=== PATIENT | male | born 1960 | race African-American/Black ===

== ENCOUNTER 2023-10-27 10:30 | Inpatient (IN) ==
--- NOTE | 2023-10-27 11:50 | DR.SOBA ---
HPI Time Seen Time Seen by Provider: 10/27/23 11:50 Primary Care Physician Primary Care Physician: Alexander Complaints Chief Complaint Doctors Comments: 62-year-old male presents for evaluation. Patient started feeling ill approximate 1 week ago. He developed nausea, decreased p.o. intake. Has a cough not very productive. Has been having hiccups over the past few days. Feeling weak in general. Not moving his bowels well. No urinary issues. Having dry mouth, altered taste sensation. Denies smoking, does drink up to a 6 pk of beer/day. Chief Complaint:: Patient states that since 10/20/2023, he has been having difficulty eating and drinking. He states that he feels very weak, and has shortness of breath when he does too much physically. He states that he has had a cough, and has hickups since then as well. COVID-19 Coronavirus risk:travel/contact w/high risk person: No Has patient experienced Coronavirus symptoms: No Reviewed Nurses Notes Reviewed: Yes Source History Provided: Patient Mode of Arrival Mode of Arrival: Wheelchair Timing Onset of Chief Complaint: 10/20/23 PMH PMH Past Medical History: Yes Past Medical History: Coronary Artery Disease and Diabetes Past Surgical History: No Family History History of Family Medical Conditions: Yes Family Medical History: Diabetes Mellitus, Cancer, [place], Heart Failure and Hypertension Social History Does patient currently use any type of tobacco product: No Have you used tobacco products in the last 12 months: No Type of Tobacco Use: None Does any household member use tobacco: No Alcohol Use: None Do you use any recreational Drugs:: No Lives With: Family Lives Where: Home Travel Risk Coronavirus risk:travel/contact w/high risk person: No Has patient experienced Coronavirus symptoms: No Infectious screening In the last 2 months have you had wt loss of >10#?: NO Have you had fever, night sweats or hemotysis?: No Have you traveled outside the country in the last 6 months?: No Isolation: Standard ROS Review of Systems Constitutional: Malaise, Weakness and Fatigue Eyes: No Symptoms Reported ENTM: No Symptoms Reported Respiratoy: Moist Cough and Short of Breath Cardiovascular: No Symptoms Reported Gastrointestinal/Abdominal: Nausea Genitourinary: No Symptoms Reported Neurological: Weakness Musculoskeletal: No Symptoms Reported Integumentary: No Symptoms Reported Hematologic/Lymphatic: No Symptoms Reported All Other Systems: Reviewed and Negative PE Vital Signs Vitals: Vital Signs Temperature 98.2 F Pulse Rate 80 Pulse Rate 82 Pulse Rate 76 Pulse Rate 76 Pulse Rate 80 Pulse Rate 76 Pulse Rate 78 Pulse Rate 78 Pulse Rate 77 Pulse Rate 85 Pulse Rate 83 Pulse Rate 88 Pulse Rate 90 Pulse Rate 82 Pulse Rate 81 Pulse Rate 82 Pulse Rate 83 Pulse Rate 83 Pulse Rate 82 Pulse Rate 80 Pulse Rate 91 Respiratory Rate 36 Respiratory Rate 29 Respiratory Rate 32 Respiratory Rate 43 Respiratory Rate 48 Respiratory Rate 29 Respiratory Rate 43 Respiratory Rate 31 Respiratory Rate 34 Respiratory Rate 45 Respiratory Rate 27 Respiratory Rate 30 Respiratory Rate 38 Respiratory Rate 30 Respiratory Rate 34 Respiratory Rate 28 Respiratory Rate 33 Respiratory Rate 38 Respiratory Rate 18 Blood Pressure 141/65 Blood Pressure 138/66 Blood Pressure 135/63 Blood Pressure 179/80 Blood Pressure 153/65 Blood Pressure 143/65 Blood Pressure 138/67 Blood Pressure 123/70 Blood Pressure 124/57 Blood Pressure 127/60 O2 Sat by Pulse Oximetry 71 O2 Sat by Pulse Oximetry 82 O2 Sat by Pulse Oximetry 100 O2 Sat by Pulse Oximetry 96 General General Appearance: Alert and In No Apparent Distress Eyes Eye exam: PERRL and EOMI ENT ENT Exam: Mucous Membranes Dry Neck Neck Exam: Normal Inspection and Full ROM Respiratory Respiratory Exam: Normal Lung Sounds Bilat; negative Accessory Muscle Use or Respiratory Distress Cardiovascular Cardiovascular Exam: Regular Rate, Normal Rhythm and Normal Heart Sounds Abdominal Exam Abdominal Exam: Normal Bowel Sounds and Soft; negative Tenderness or Guarding Extremities Extremities Exam: Normal Inspection and Full ROM; negative Edema Back Back Exam: Normal Inspection Neurologic Neurological Exam: Alert, Oriented X3 and CN II-XII Intact; negative Motor Sensory Deficit Skin Skin Exam: Warm and Dry COURSE Treatment Treatment: 62-year-old male with illness for the past week. Having decreased p.o. intake, nausea, now hiccups. Has been having some cough. Having general weakness. Workup initiated. Patient given IV fluids, IV Protonix/Zofran. Labs show nml CBC, has a low sodium at 127, due to his elevated sugar at 732.. He is likely having acute kidney injury, BUN 54 with a creatinine 3.73. Patient given IV regular insulin, 12 units bolus. Continued IV fluids. Recommend admission for further IV hydration and treatment. Discussed with Dr. Vega, covering for admissions, accepts admission. ROR Labs Reviewed Laboratory Results Reviewed?: Yes 10/27/23 12:15 10/27/23 12:15 Laboratory: WBC 8.9 X10^3/uL (3.6-10.0) 10/27/23 12:15 RBC 3.38 X10^6/uL (4.7-6.0) L 10/27/23 12:15 Hgb 11.3 g/dL (13.5-18.0) L 10/27/23 12:15 Hct 35.0 % (42.0-54.0) L 10/27/23 12:15 MCV 103.6 fL (80.0-100.0) H 10/27/23 12:15 MCH 33.5 pg (27.0-34.0) 10/27/23 12:15 MCHC 32.3 g/dL (33.0-35.0) L 10/27/23 12:15 RDW 13.7 % (11.6-16.5) 10/27/23 12:15 Plt Count 154 X10^3/uL (150.0-450.0) 10/27/23 12:15 MPV 10.3 fL (7.4-11.0) 10/27/23 12:15 Neut % (Auto) 78.7 % (42.0-75.0) H 10/27/23 12:15 Lymph % (Auto) 5.1 % (21.0-51.0) L 10/27/23 12:15 [place] % (Auto) 15.6 % (0.0-13.0) H 10/27/23 12:15 Eos % (Auto) 0.1 % (0.9-2.9) L 10/27/23 12:15 Baso % (Auto) 0.5 % (0.2-1.0) 10/27/23 12:15 Neut # (Auto) 7.0 x10^3/uL (2.2-4.8) H 10/27/23 12:15 Lymph # (Auto) 0.5 X10^3/uL (1.3-2.9) L 10/27/23 12:15 [place] # (Auto) 1.4 x10^3/uL (0.3-0.8) H 10/27/23 12:15 Eos # (Auto) 0.0 x10^3/uL (0.0-0.2) 10/27/23 12:15 Baso # (Auto) 0.0 X10^3/uL (0.0-0.1) 10/27/23 12:15 Absolute Nucleated RBC 0.0 /100WBC 10/27/23 12:15 Sodium 127 mmol/L (136-145) L 10/27/23 12:15 Corrected Sodium 142 mmol/L (136-145) 10/27/23 12:15 Potassium 4.8 mmol/L (3.5-5.1) 10/27/23 12:15 Chloride 88 mmol/L (98-107) L 10/27/23 12:15 Carbon Dioxide 24.4 mmol/L (21-32) 10/27/23 12:15 BUN 54 mg/dL (7-18) H 10/27/23 12:15 Creatinine 3.73 mg/dL (0.70-1.30) H 10/27/23 12:15 Est GFR (MDRD) Af Amer 21 (>60) L 10/27/23 12:15 Est GFR (MDRD) Non-Af 18 (>60) L 10/27/23 12:15 Glucose 732 mg/dL (65-99) H* 10/27/23 12:15 Calcium 9.3 mg/dL (8.5-10.1) 10/27/23 12:15 Corrected Calcium 10.3 mg/dL (8.5-10.1) H 10/27/23 12:15 Magnesium 1.7 mg/dL (2.0-2.9) L 10/27/23 12:15 Total Bilirubin 1.70 mg/dL (0.2-1.0) H 10/27/23 12:15 AST 79 Units/L (15-37) H 10/27/23 12:15 ALT 57 Units/L (12-78) 10/27/23 12:15 Alkaline Phosphatase 81 Units/L (46-116) 10/27/23 12:15 Creatine Kinase 294 Units/L (39-308) 10/27/23 12:15 Troponin I High Sens 38.4 ng/L (4.0-60.0) 10/27/23 12:15 Total Protein 9.1 g/dL (6.4-8.2) H 10/27/23 12:15 Albumin 2.7 g/dL (3.4-5.0) L 10/27/23 12:15 Globulin 6.4 g/dL (2.5-4.5) H 10/27/23 12:15 Albumin/Globulin Ratio 0.4 Ratio (1.1-2.1) L 10/27/23 12:15 Vitamin B12 719 pg/mL (193-986) 10/27/23 12:15 Folate 7.8 ng/mL (>8.6) L 10/27/23 12:15 SARS-CoV-2 (PCR) Negative (NEGATIVE) 10/27/23 12:08 Influenza Type A (PCR) Negative (NEGATIVE) 10/27/23 12:08 Influenza Type B (PCR) Negative (NEGATIVE) 10/27/23 12:08 RSV (PCR) Negative (NEGATIVE) 10/27/23 12:08 EKG Rate: 80 [place]: Normal Rhythm: NSR ST: Normal Opioid Opioid Risk Tool Age (Erickson box if 16-45): No History of Preadolescent Sexual Abuse: No Total: 0 Total Score Risk Category: Low Risk Copyright: [place] ERIC predicting aberrant behaviors Discharge Plan Discharge Plan Patient Disposition: HOME, SELF-CARE Condition: Stable Prescriptions: No Action atorvastatin 10 mg tablet 10 mg PO QDAY meloxicam 15 mg tablet 15 mg PO QDAY tamsulosin 0.4 mg capsule 0.4 mg PO QDAY Rybelsus 7 mg Tablet 7 mg PO DAILY Orders to Discharge Patient Discharge Orders: Transfer (Routine); Ordered 10/27/23 Ordered By: Silverio Walters
[2023-10-27] MEDS ORDERED: NS 1,000 ML IV 1,000 ML IV ONE ×3 (12:00→19:11)
[2023-10-27] MEDS ORDERED: ZOFRAN INJ 4 MG VIAL IVP ONE (12:02)
[2023-10-27] MEDS ORDERED: PROTONIX INJ 40 MG VIAL IVP ONE (12:02)
[2023-10-27] MEDS ORDERED: PROTONIX INJ 40 MG VIAL ONE (12:06)
[2023-10-27] MEDS ORDERED: ZOFRAN INJ 4 MG VIAL ONE (12:07)
[2023-10-27] MEDS ORDERED: NS 1,000 ML IV 1,000 ML ONE ×2 (12:07→15:02)
--- NOTE | 2023-10-27 12:20 | EKG ---
Test Reason : dyspnea Blood Pressure : */* mmHG Vent. Rate : 80 BPM Atrial Rate : 80 BPM P-R Int : 180 ms QRS Dur : 78 ms QT Int : 360 ms P-R-T Axes : 44 20 24 degrees QTc Int : 415 ms Normal sinus rhythm with sinus arrhythmia Normal ECG No previous ECGs available Confirmed by Mal George MD ([id number]) on 10/27/2023 1:52:44 PM Referred By: Confirmed By: Mal George MD
[2023-10-27 12:32] LABS: BASOPHILS % (AUTO) 0.5 % (0.2-1.0); EOSINOPHILS % (AUTO) 0.1 % (0.9-2.9); HEMOGLOBIN 11.3 g/dL (13.5-18.0); LYMPHOCYTES # (AUTO) 0.5 X10^3/uL (1.3-2.9); LYMPHOCYTES % (AUTO) 5.1 % (21.0-51.0); MEAN CORPUSCULAR HEMOGLOBIN 33.5 pg (27.0-34.0); MEAN CORPUSCULAR HGB CONC 32.3 g/dL (33.0-35.0); MEAN CORPUSCULAR VOLUME 103.6 fL (80.0-100.0); MEAN PLATELET VOLUME 10.3 fL (7.4-11.0); MONOCYTES # (AUTO) 1.4 x10^3/uL (0.3-0.8); MONOCYTES % (AUTO) 15.6 % (0.0-13.0); NEUTROPHILS % (AUTO) 78.7 % (42.0-75.0); PLATELET COUNT 154 X10^3/uL (150.0-450.0); RED BLOOD COUNT 3.38 X10^6/uL (4.7-6.0); RED CELL DISTRIBUTION WIDTH 13.7 % (11.6-16.5); WHITE BLOOD COUNT 8.9 X10^3/uL (3.6-10.0)
[2023-10-27 12:54] LABS: ALBUMIN 2.7 g/dL (3.4-5.0); CALCIUM 9.3 mg/dL (8.5-10.1); CARBON DIOXIDE 24.4 mmol/L (21-32); COR CA(FOR HYPOALB) 10.3 mg/dL (8.5-10.1); CREATININE 3.73 mg/dL (0.70-1.30); MAGNESIUM 1.7 mg/dL (2.0-2.9); POTASSIUM 4.8 mmol/L (3.5-5.1); TOTAL PROTEIN 9.1 g/dL (6.4-8.2)
--- NOTE | 2023-10-27 13:10 | RAD ---
EXAM:CHEST, 1 VIEWHISTORY:SOB, HICCUPS;COMPARISON:No relevant prior studies were available for comparison at the time of interpretation.TECHNIQUE:CHEST, 1 VIEWFINDINGS:Chest:Lines and tubes: NoneMediastinum: Cardiac and mediastinal shadow is within normal limits for size and contour.Pulmonary vessels: No pulmonary vascular congestion.Lung burleson: No suspicious airspace opacity.Pleura: No effusion. No pneumothorax.Bones and soft tissues: No acute osseous or soft tissue abnormality.IMPRESSION:1. No acute cardiopulmonary abnormalityTHIS IS AN ELECTRONICALLY VERIFIED FINAL REPORT10/27/2023 1:07 PM - Electronically signed by Philip Betancourt MD
[2023-10-27] MEDS ORDERED: NovoLIN R (or HumuLIN R) IV ONE (14:59)
[2023-10-27] MEDS ORDERED: NovoLIN R (or HumuLIN R) ONE ×2 (15:03→15:10)
[2023-10-27] MEDS ORDERED: NS 1,000 ML IV 1,000 ML IV SCH (16:33)
[2023-10-27] MEDS: MAGNESIUM SULFATE 1 GRAM/100 mL PREMIX 1 G/100 ML BAG IV SCH ×2 (18:05→19:55)
[2023-10-27] MEDS: FOLIC ACID TAB 1 MG PO SCH (18:05)
[2023-10-27 18:57] VITALS: BMI 25.5
[2023-10-27] MEDS ORDERED: SNACK - Diabetic Appropriate PO SCH (20:00)
[2023-10-27 20:06] LABS: BILIRUBIN,URINE NEGATIVE (NEGATIVE); BLOOD/HEMOGLOBIN,URINE 4+ (NEGATIVE); GLUCOSE, URINE 4+ (NEGATIVE); KETONES,URINE 1+ (NEGATIVE); LEUKOCYTE ESTERASE ,URINE NEGATIVE (NEGATIVE); NITRITES,URINE NEGATIVE (NEGATIVE); PROTEIN,URINE 1+ (NEGATIVE); UROBILINOGEN,URINE NORMAL (NORMAL)
[2023-10-27 20:16] LABS: APPEARANCE,URINE CLEAR (CLEAR); COLOR,URINE DARK YELLOW (YELLOW)
[2023-10-27 20:17] LABS: BACTERIA,URINE 2+ /HPF (NEGATIVE); GRANULAR CASTS,URINE RARE /LPF (NEGATIVE); HYALINE CASTS, URINE RARE /LPF (NEGATIVE); SQUAMOUS EPITHELIAL CELL,UR FEW /HPF (NEGATIVE)
[2023-10-27] MEDS: SNACK - Diabetic Appropriate PO SCH (21:23)
[2023-10-27] MEDS: NovoLIN R (or HumuLIN R) SUBCUT PRN (21:52)
[2023-10-27] MEDS: LIBRIUM PO PRN (22:43)
[2023-10-28] MEDS: NS 1,000 ML IV 1,000 ML IV SCH ×3 (02:01→17:41)
[2023-10-28 05:38] LABS: BASOPHILS % (AUTO) 0.2 % (0.2-1.0); EOSINOPHILS % (AUTO) 0.5 % (0.9-2.9); HEMATOCRIT 32.9 % (42.0-54.0); LYMPHOCYTES # (AUTO) 0.6 X10^3/uL (1.3-2.9); MEAN CORPUSCULAR HEMOGLOBIN 33.5 pg (27.0-34.0); MEAN CORPUSCULAR HGB CONC 33.3 g/dL (33.0-35.0); MEAN CORPUSCULAR VOLUME 100.4 fL (80.0-100.0); MEAN PLATELET VOLUME 9.8 fL (7.4-11.0); MONOCYTES # (AUTO) 1.4 x10^3/uL (0.3-0.8); MONOCYTES % (AUTO) 15.7 % (0.0-13.0); NEUTROPHILS # (AUTO) 6.7 x10^3/uL (2.2-4.8); NEUTROPHILS % (AUTO) 76.6 % (42.0-75.0); PLATELET COUNT 162 X10^3/uL (150.0-450.0); RED BLOOD COUNT 3.28 X10^6/uL (4.7-6.0); RED CELL DISTRIBUTION WIDTH 13.6 % (11.6-16.5); WHITE BLOOD COUNT 8.7 X10^3/uL (3.6-10.0)
[2023-10-28 05:46] LABS: ALBUMIN 2.3 g/dL (3.4-5.0); CALCIUM 8.8 mg/dL (8.5-10.1); CARBON DIOXIDE 27.4 mmol/L (21-32); COR CA(FOR HYPOALB) 10.2 mg/dL (8.5-10.1); CREATININE 2.91 mg/dL (0.70-1.30); POTASSIUM 4.3 mmol/L (3.5-5.1)
[2023-10-28] MEDS: NovoLIN R (or HumuLIN R) SUBCUT PRN ×4 (05:56→21:35)
[2023-10-28] MEDS: FLOMAX PO SCH (09:12)
[2023-10-28] MEDS: LIBRIUM PO PRN ×2 (09:12→21:36)
[2023-10-28] MEDS: FOLIC ACID TAB 1 MG PO SCH (09:12)
[2023-10-28] MEDS: LOVENOX INJ 30 MG SYR SC SCH (09:13)
[2023-10-28] MEDS ORDERED: VALIUM PO ONE (09:17)
[2023-10-28] MEDS: VISTARIL PO SCH ×2 (10:48→19:02)
[2023-10-28] MEDS: NORCO 5/325 MG TAB PO PRN ×2 (12:24→21:36)
[2023-10-28] MEDS ORDERED: LIBRIUM PO PRN (17:11)
--- NOTE | 2023-10-28 18:53 | PCM.PROG ---
Progress Note Progress Note for Day of Date of Exam: 10/28/23 Subjective Subjective: PT IS 63 BM, ER ADMISSION WITH ACUTE RENAL INSUFFICIENCY AND HYPONATREMIA. PT REPORTS HX OF DIABETES AND ARTHRITIS. PT STATES HE HAS NOT TAKEN ANY MEDICATION FOR "SOMETIME NOW" PT HAS BEEN ON GENTLE IV HYDRATION SINCE ADMISSION WITH SLIGHT IMPROVEMENT IN BUN CREAT AT50/2.91 THIS AM. NA 128. PT BS ELEVATED, COVERING WITH SSI. PT REPORTS HE IS REGULAR BEER DRINKER. PT IS ON LIBRIUM AND PRN VISTARIL FOR AGITATION/WITHDRAWAL SYMPTOMS. PT CO LOWER BACK PAIN THIS AM. PT HAS MOBIC ON HOME MEDICATION LIST, WHICH HE CANNOT TAKE DUE TO RENAL IMPAIRMENT. PRN NORCO ADDED FOR PAIN CONTROL. PLAN TO REPEAT AM LABS AND CONTINUE BS AND BP MONITORING Past Medical Family Social History Allergies: Allergies No Known Allergies Allergy (Verified 11/03/22 08:13) Vital Signs and I&O's Vital Signs: Vital Signs Temperature 97.7 F Temperature 98.8 F Pulse Rate 81 Pulse Rate 82 Pulse Rate 79 Pulse Rate 82 Pulse Rate 93 Pulse Rate 85 Pulse Rate 100 Pulse Rate 93 Pulse Rate 87 Respiratory Rate 51 Respiratory Rate 34 Respiratory Rate 46 Respiratory Rate 41 Respiratory Rate 33 Respiratory Rate 40 Respiratory Rate 26 Respiratory Rate 33 Respiratory Rate 28 Respiratory Rate 25 Respiratory Rate 30 Blood Pressure 124/63 Blood Pressure 110/59 Blood Pressure 104/56 Blood Pressure 95/50 Blood Pressure 90/54 Blood Pressure 86/54 Blood Pressure 85/51 Blood Pressure 86/54 Blood Pressure 125/63 Blood Pressure 124/59 Blood Pressure 152/72 O2 Sat by Pulse Oximetry 95 O2 Sat by Pulse Oximetry 98 O2 Sat by Pulse Oximetry 100 O2 Sat by Pulse Oximetry 100 O2 Sat by Pulse Oximetry 97 O2 Sat by Pulse Oximetry 96 O2 Sat by Pulse Oximetry 99 O2 Sat by Pulse Oximetry 97 O2 Sat by Pulse Oximetry 93 Intake and Output: Intake & Output 10/26/23 10/27/23 10/28/23 10/29/23 11:59 11:59 11:59 11:59 Intake Total 2475 / 2475 1095 / 1095 Output Total 1350 / 1350 575 / 575 Balance 1125 / 1125 520 / 520 Physical Exam Oriented: Normal Eyes: Normal Ear: Normal Nose: Normal Throat: Dry Respiratory: Diminished Cardiovascular: Normal : Normal Auscultation: Bowel Sounds: Normal Palpation: Normal Tenderness: Normal Skin: Decreased [place]urgur Musculoskeletal: Back:Lumbar Affect: Anxious Speech Pattern: Clear and Appropriate Laboratory and Diagnostics 10/28/23 04:50 10/28/23 04:50 Labs: 10/27/23 19:55 Urine,Clean Catch Urine Culture - Preliminary Laboratory WBC 8.7 X10^3/uL (3.6-10.0) 10/28/23 04:50 RBC 3.28 X10^6/uL (4.7-6.0) L 10/28/23 04:50 Hgb 11.0 g/dL (13.5-18.0) L 10/28/23 04:50 Hct 32.9 % (42.0-54.0) L 10/28/23 04:50 MCV 100.4 fL (80.0-100.0) H 10/28/23 04:50 MCH 33.5 pg (27.0-34.0) 10/28/23 04:50 MCHC 33.3 g/dL (33.0-35.0) 10/28/23 04:50 RDW 13.6 % (11.6-16.5) 10/28/23 04:50 Plt Count 162 X10^3/uL (150.0-450.0) 10/28/23 04:50 MPV 9.8 fL (7.4-11.0) 10/28/23 04:50 Neut % (Auto) 76.6 % (42.0-75.0) H 10/28/23 04:50 Lymph % (Auto) 7.0 % (21.0-51.0) L 10/28/23 04:50 [place] % (Auto) 15.7 % (0.0-13.0) H 10/28/23 04:50 Eos % (Auto) 0.5 % (0.9-2.9) L 10/28/23 04:50 Baso % (Auto) 0.2 % (0.2-1.0) 10/28/23 04:50 Neut # (Auto) 6.7 x10^3/uL (2.2-4.8) H 10/28/23 04:50 Lymph # (Auto) 0.6 X10^3/uL (1.3-2.9) L 10/28/23 04:50 [place] # (Auto) 1.4 x10^3/uL (0.3-0.8) H 10/28/23 04:50 Eos # (Auto) 0.0 x10^3/uL (0.0-0.2) 10/28/23 04:50 Baso # (Auto) 0.0 X10^3/uL (0.0-0.1) 10/28/23 04:50 Absolute Nucleated RBC 0.1 /100WBC 10/28/23 04:50 Sodium 128 mmol/L (136-145) L 10/28/23 04:50 Corrected Sodium 133 mmol/L (136-145) L 10/28/23 04:50 Potassium 4.3 mmol/L (3.5-5.1) 10/28/23 04:50 Chloride 95 mmol/L (98-107) L 10/28/23 04:50 Carbon Dioxide 27.4 mmol/L (21-32) 10/28/23 04:50 BUN 50 mg/dL (7-18) H 10/28/23 04:50 Creatinine 2.91 mg/dL (0.70-1.30) H 10/28/23 04:50 Est GFR (MDRD) Af Amer 28 (>60) L 10/28/23 04:50 Est GFR (MDRD) Non-Af 23 (>60) L 10/28/23 04:50 Glucose 306 mg/dL (65-99) H 10/28/23 04:50 POC Glucose (mg/dL) 247 mg/dL (65-99) H 10/28/23 16:38 Calcium 8.8 mg/dL (8.5-10.1) 10/28/23 04:50 Corrected Calcium 10.2 mg/dL (8.5-10.1) H 10/28/23 04:50 Magnesium 1.7 mg/dL (2.0-2.9) L 10/27/23 12:15 Total Bilirubin 1.60 mg/dL (0.2-1.0) H 10/28/23 04:50 AST 142 Units/L (15-37) H 10/28/23 04:50 ALT 60 Units/L (12-78) 10/28/23 04:50 Alkaline Phosphatase 74 Units/L (46-116) 10/28/23 04:50 Creatine Kinase 294 Units/L (39-308) 10/27/23 12:15 Troponin I High Sens 38.4 ng/L (4.0-60.0) 10/27/23 12:15 Total Protein 8.0 g/dL (6.4-8.2) 10/28/23 04:50 Albumin 2.3 g/dL (3.4-5.0) L 10/28/23 04:50 Globulin 5.7 g/dL (2.5-4.5) H 10/28/23 04:50 Albumin/Globulin Ratio 0.4 Ratio (1.1-2.1) L 10/28/23 04:50 Vitamin B12 719 pg/mL (193-986) 10/27/23 12:15 Folate 7.8 ng/mL (>8.6) L 10/27/23 12:15 Specimen Type Clean catch urine 10/27/23 19:55 Urine Color Dark yellow (YELLOW) 10/27/23 19:55 Urine Appearance Clear (CLEAR) 10/27/23 19:55 Urine pH 5.0 (5.0 - 8.0) 10/27/23 19:55 Ur Specific [place] 1.015 (1.000-1.030) 10/27/23 19:55 Urine Protein 1+ (NEGATIVE) 10/27/23 19:55 Urine Glucose (UA) 4+ (NEGATIVE) 10/27/23 19:55 Urine Ketones 1+ (NEGATIVE) 10/27/23 19:55 Urine Blood 4+ (NEGATIVE) 10/27/23 19:55 Urine Nitrite Negative (NEGATIVE) 10/27/23 19:55 Urine Bilirubin Negative (NEGATIVE) 10/27/23 19:55 Urine Urobilinogen Normal (NORMAL) 10/27/23 19:55 Ur Leukocyte Esterase Negative (NEGATIVE) 10/27/23 19:55 Urine RBC 3-5 /HPF (0-3) A 10/27/23 19:55 Urine WBC None seen /HPF (0-5) 10/27/23 19:55 Ur Squamous Epith Cells Few /HPF (NEGATIVE) 10/27/23 19:55 Amorphous Sediment Trace /HPF (NEGATIVE) 10/27/23 19:55 Urine Bacteria 2+ /HPF (NEGATIVE) 10/27/23 19:55 Hyaline Casts Rare /LPF (NEGATIVE) 10/27/23 19:55 Granular Casts Rare /LPF (NEGATIVE) 10/27/23 19:55 Ur Culture Indicated? Yes/culture set up 10/27/23 19:55 SARS-CoV-2 (PCR) Negative (NEGATIVE) 10/27/23 12:08 Influenza Type A (PCR) Negative (NEGATIVE) 10/27/23 12:08 Influenza Type B (PCR) Negative (NEGATIVE) 10/27/23 12:08 RSV (PCR) Negative (NEGATIVE) 10/27/23 12:08 Plan (1) Acute kidney injury (nontraumatic): Status: Acute Narrative Support Text: GENTLE IV HYDRATION, STRICT I&OS BS CONTROL BP CONTROL REPEAT AM LABS, ENCOURAGE ORAL HYDRATION (2) Poorly controlled diabetes mellitus: Status: Acute (3) Hyponatremia: Status: Acute
[2023-10-28] MEDS: TRADJENTA PO SCH (19:05)
[2023-10-28] MEDS: SNACK - Diabetic Appropriate PO SCH (19:40)
[2023-10-29] MEDS: NS 1,000 ML IV 1,000 ML IV SCH ×4 (00:51→23:25)
[2023-10-29] MEDS: VISTARIL PO SCH ×3 (02:55→17:14)
[2023-10-29 05:42] LABS: BASOPHILS % (AUTO) 0.1 % (0.2-1.0); EOSINOPHILS % (AUTO) 0.3 % (0.9-2.9); HEMATOCRIT 30.5 % (42.0-54.0); HEMOGLOBIN 10.1 g/dL (13.5-18.0); LYMPHOCYTES # (AUTO) 0.5 X10^3/uL (1.3-2.9); LYMPHOCYTES % (AUTO) 3.8 % (21.0-51.0); MEAN CORPUSCULAR HGB CONC 33.1 g/dL (33.0-35.0); MEAN CORPUSCULAR VOLUME 99.7 fL (80.0-100.0); MONOCYTES # (AUTO) 1.7 x10^3/uL (0.3-0.8); MONOCYTES % (AUTO) 12.7 % (0.0-13.0); NEUTROPHILS # (AUTO) 10.8 x10^3/uL (2.2-4.8); NEUTROPHILS % (AUTO) 83.1 % (42.0-75.0); PLATELET COUNT 141 X10^3/uL (150.0-450.0); RED BLOOD COUNT 3.06 X10^6/uL (4.7-6.0); RED CELL DISTRIBUTION WIDTH 13.7 % (11.6-16.5)
[2023-10-29] MEDS: NovoLIN R (or HumuLIN R) SUBCUT PRN ×3 (05:46→21:01)
[2023-10-29 05:58] LABS: ALBUMIN 1.9 g/dL (3.4-5.0); CALCIUM 8.3 mg/dL (8.5-10.1); CARBON DIOXIDE 23.8 mmol/L (21-32); CREATININE 3.19 mg/dL (0.70-1.30); POTASSIUM 4.1 mmol/L (3.5-5.1); TOTAL PROTEIN 7.2 g/dL (6.4-8.2)
[2023-10-29 06:11] LABS: BAND NEUTROPHILS % 5 % (0-10); PLATELET MORPHOLOGY COMMENT NORMAL (NORMAL)
[2023-10-29] MEDS: FOLIC ACID TAB 1 MG PO SCH (09:25)
[2023-10-29] MEDS: LOVENOX INJ 30 MG SYR SC SCH (09:25)
[2023-10-29] MEDS: FLOMAX PO SCH (09:25)
[2023-10-29] MEDS: TRADJENTA PO SCH (09:26)
[2023-10-29 10:06] LABS: BILIRUBIN,URINE 1+ (NEGATIVE); BLOOD/HEMOGLOBIN,URINE 3+ (NEGATIVE); GLUCOSE, URINE 4+ (NEGATIVE); KETONES,URINE NEGATIVE (NEGATIVE); LEUKOCYTE ESTERASE ,URINE 1+ (NEGATIVE); NITRITES,URINE NEGATIVE (NEGATIVE); PROTEIN,URINE 2+ (NEGATIVE); UROBILINOGEN,URINE 2+ (NORMAL)
[2023-10-29 10:18] LABS: APPEARANCE,URINE SLIGHTLY HAZY (CLEAR); COLOR,URINE ORANGE (YELLOW)
[2023-10-29 10:19] LABS: BACTERIA,URINE 2+ /HPF (NEGATIVE); GRANULAR CASTS,URINE FEW /LPF (NEGATIVE); RBC,URINE 0-2 /HPF (0-3); SQUAMOUS EPITHELIAL CELL,UR RARE /HPF (NEGATIVE)
[2023-10-29] MEDS: ROCEPHIN VIAL 1 GRAM 1 G in NS 100 ML IV 100 ML IV SCH (12:17)
--- NOTE | 2023-10-29 12:45 | CT ---
EXAM:PELVIS W/O CONHISTORY:ENLARGED PROSTATE ; HTN, DIABETES.COMPARISON:NoneTECHNIQUE:Multip le CT axial images of the pelvis were obtained without IV contrast. Coronal and sagittal images were reconstructed. Dose reduction techniques included Automated Exposure Control (AEC) and adjustment of mA and kV.FINDINGS:[place] balloon catheter is inflated in the urinary bladder lumen. Bladder is calcified with no obvious wall thickening or edema around it.Margins of the prostate are not well seen but I believe it measures 52 x 57 x 39 mm. This yields a volume of about 60 mL. It has no abnormal density or significant calcification.The bowel is not dilated. There is no wall thickening in the bowel or edema around the bowel.Degenerative changes are present in the spine. There are also degenerative changes in the left femoral head.IMPRESSION:1. Large prostateTHIS IS AN ELECTRONICALLY VERIFIED FINAL REPORT10/29/2023 12:43 PM - Electronically signed by Renan Moreno MD
[2023-10-29] MEDS: LIBRIUM PO PRN (18:59)
--- NOTE | 2023-10-29 19:00 | EKG ---
Test Reason : Elevated HR Blood Pressure : */* mmHG Vent. Rate : 150 BPM Atrial Rate : * BPM P-R Int : * ms QRS Dur : 82 ms QT Int : 290 ms P-R-T Axes : * 21 10 degrees QTc Int : 458 ms Atrial fibrillation with rapid ventricular response Abnormal ECG When compared with ECG of 27-OCT-2023 12:17, Atrial fibrillation has replaced Sinus rhythm Vent. rate has increased BY 70 BPM Confirmed by Mal George MD ([id number]) on 11/01/2023 7:46:52 AM Referred By: Confirmed By: Mal George MD
[2023-10-29] MEDS ORDERED: MOTRIN TAB 800 MG PO PRN (19:30)
[2023-10-29] MEDS ORDERED: PHENOBARBITAL SODIUM INJ 65 MG VIAL IM PRN (19:30)
[2023-10-29] MEDS ORDERED: KAOPECTATE (NEW FORMULA) PO PRN (19:30)
[2023-10-29] MEDS ORDERED: LIBRIUM PO PRN (19:30)
[2023-10-29] MEDS ORDERED: MAALOX or MYLANTA PO PRN (19:30)
[2023-10-29] MEDS ORDERED: MILK OF MAGNESIA PO PRN (19:30)
[2023-10-29] MEDS ORDERED: CARDIZEM INJ 50 MG VIAL IVP ONE (19:34)
[2023-10-29] MEDS ORDERED: CARDIZEM INJ 125 MG VIAL 125 MG in NS 100 ML IV 100 ML IV PRN (20:11)
[2023-10-29] MEDS: AMBIEN PO SCH (20:31)
[2023-10-29] MEDS: PHENOBARBITAL TAB 30 MG (32.4MG) PO SCH (20:31)
[2023-10-29] MEDS: SNACK - Diabetic Appropriate PO SCH (20:33)
[2023-10-29] MEDS ORDERED: MAGNESIUM SULFATE 1 GRAM/100 mL PREMIX 1 G/100 ML BAG IV ONE (20:52)
[2023-10-29] MEDS: MAGNESIUM SULFATE 1 GRAM/100 mL PREMIX 1 G/100 ML BAG IV SCH (21:00)
[2023-10-29] MEDS: ELIQUIS PO SCH (23:39)
[2023-10-30] MEDS ORDERED: NS 500 ML IV 500 ML IV ONE (01:18)
[2023-10-30] MEDS: VISTARIL PO SCH ×3 (03:16→17:49)
[2023-10-30] MEDS: NS 1,000 ML IV 1,000 ML IV SCH ×4 (05:18→17:32)
[2023-10-30] MEDS: MAGNESIUM SULFATE 1 GRAM/100 mL PREMIX 1 G/100 ML BAG IV SCH ×3 (05:19→21:17)
[2023-10-30 05:28] LABS: BASOPHILS # (AUTO) 0.1 X10^3/uL (0.0-0.1); BASOPHILS % (AUTO) 0.7 % (0.2-1.0); EOSINOPHILS # (AUTO) 0.1 x10^3/uL (0.0-0.2); EOSINOPHILS % (AUTO) 0.5 % (0.9-2.9); HEMATOCRIT 30.5 % (42.0-54.0); HEMOGLOBIN 10.2 g/dL (13.5-18.0); LYMPHOCYTES # (AUTO) 0.4 X10^3/uL (1.3-2.9); LYMPHOCYTES % (AUTO) 3.8 % (21.0-51.0); MEAN CORPUSCULAR HEMOGLOBIN 33.5 pg (27.0-34.0); MEAN CORPUSCULAR HGB CONC 33.6 g/dL (33.0-35.0); MEAN CORPUSCULAR VOLUME 99.8 fL (80.0-100.0); MEAN PLATELET VOLUME 10.6 fL (7.4-11.0); MONOCYTES # (AUTO) 1.4 x10^3/uL (0.3-0.8); MONOCYTES % (AUTO) 12.3 % (0.0-13.0); NEUTROPHILS # (AUTO) 9.1 x10^3/uL (2.2-4.8); NEUTROPHILS % (AUTO) 82.7 % (42.0-75.0); PLATELET COUNT 135 X10^3/uL (150.0-450.0); RED BLOOD COUNT 3.05 X10^6/uL (4.7-6.0); RED CELL DISTRIBUTION WIDTH 13.9 % (11.6-16.5)
[2023-10-30] MEDS: NovoLIN R (or HumuLIN R) SUBCUT PRN ×4 (05:30→20:36)
[2023-10-30 05:44] LABS: ALBUMIN 1.7 g/dL (3.4-5.0); CALCIUM 8.1 mg/dL (8.5-10.1); CARBON DIOXIDE 21.1 mmol/L (21-32); COR CA(FOR HYPOALB) 9.9 mg/dL (8.5-10.1); CREATININE 3.02 mg/dL (0.70-1.30)
[2023-10-30 06:09] LABS: POTASSIUM 4.3 mmol/L (3.5-5.1)
--- NOTE | 2023-10-30 06:55 | RAD ---
EXAM: CHEST, PA/LAT ADULT HISTORY: detox protocol; COMPARISON: 10/27/2023. TECHNIQUE: 2 views of the chest FINDINGS: The cardiac and mediastinal contours are normal in size. Left base subsegmental atelectasis versus s car. Mildly elevated right hemidiaphragm. IMPRESSION: Linear left base opacities consistent with subsegmental atelectasis versus scar. THIS IS AN ELECTRONICALLY VERIFIED FINAL REPORT 10/30/2023 6:51 AM - Electronically signed by Faraz Chung MD
[2023-10-30] MEDS: ROCEPHIN VIAL 1 GRAM 1 G in NS 100 ML IV 100 ML IV SCH (10:03)
[2023-10-30] MEDS: TRADJENTA PO SCH (10:03)
[2023-10-30] MEDS: LIBRIUM PO PRN ×2 (10:04→10:06)
[2023-10-30] MEDS: FOLIC ACID TAB 1 MG PO SCH (10:04)
[2023-10-30] MEDS: PHENOBARBITAL TAB 30 MG (32.4MG) PO SCH ×5 (10:04→20:26)
[2023-10-30] MEDS: FLOMAX PO SCH (10:05)
[2023-10-30] MEDS: ELIQUIS PO SCH ×2 (10:05→20:24)
[2023-10-30] MEDS: NORCO 5/325 MG TAB PO PRN (10:05)
[2023-10-30] MEDS: THIAMINE HCL INJ IM SCH (10:06)
[2023-10-30] MEDS: CARDIZEM CD 120 MG 24-HR PO SCH ×2 (12:57→14:05)
--- NOTE | 2023-10-30 16:18 | PCM.PROG ---
Progress Note Progress Note for Day of Date of Exam: 10/30/23 Subjective Subjective: PT IS 63 BM, ER ADMISSION WITH ACUTE RENAL INSUFFICIENCY AND HYPONATREMIA. PT REPORTS HX OF DIABETES AND ARTHRITIS. PT STATES HE HAS NOT TAKEN ANY MEDICATION FOR "SOMETIME NOW" PT HAS BEEN ON GENTLE IV HYDRATION SINCE ADMISSION WITH SLIGHT IMPROVEMENT IN BUN CREAT AT50/2.91 THIS AM. NA 128. PT BS ELEVATED, COVERING WITH SSI. PT REPORTS HE IS REGULAR BEER DRINKER. PT IS ON LIBRIUM AND PRN VISTARIL FOR AGITATION/WITHDRAWAL SYMPTOMS. PT CO LOWER BACK PAIN THIS AM. PT HAS MOBIC ON HOME MEDICATION LIST, WHICH HE CANNOT TAKE DUE TO RENAL IMPAIRMENT. PRN NORCO ADDED FOR PAIN CONTROL. PLAN TO REPEAT AM LABS AND CONTINUE BS AND BP MONITORING Wednesday, 30 October 2023 The patient is sitting up alert and awake this morning. He is fully alert and awake this morning and conversing normally. I got a call last night about him having atrial for with RVR. His heart rate had gone up to the 150s and I ordered a bolus of Cardizem 10 mg IM x 1. Afterwards we started the Cardizem drip but the patient became hypotensive afterwards and we had an stopping the drip. I ended up giving him a bolus of normal saline 500 cc x 1 last night and his blood pressure only a small amount. We will continue to gently rehydrate him and I was planning on starting him on oral Cardizem CD this morning at 120 mg p.o. daily but the patient's blood pressure has remained low. I will also anticoagulate him last night with Eliquis 10 mg twice daily. Past Medical Family Social History Allergies: Allergies No Known Allergies Allergy (Verified 11/03/22 08:13) Review of Systems ROS: No change since H&P Vital Signs and I&O's Vital Signs: Vital Signs Temperature 97.9 F Pulse Rate 65 Pulse Rate 68 Pulse Rate 69 Pulse Rate 68 Respiratory Rate 22 Respiratory Rate 22 Respiratory Rate 22 Respiratory Rate 25 Respiratory Rate 24 Blood Pressure 87/52 Blood Pressure 90/54 Blood Pressure 85/53 Blood Pressure 77/51 O2 Sat by Pulse Oximetry 98 O2 Sat by Pulse Oximetry 95 O2 Sat by Pulse Oximetry 95 O2 Sat by Pulse Oximetry 98 Intake and Output: Intake & Output 10/27/23 10/28/23 10/29/23 10/30/23 11:59 11:59 11:59 11:59 Intake Total 2475 / 2475 2611 / 2611 3301 / 3301 Output Total 1350 / 1350 1750 / 1750 1700 / 1700 Balance 1125 / 1125 861 / 861 1601 / 1601 Physical Exam Oriented: Normal Eyes: Normal Ear: Normal Nose: Normal Throat: Dry Respiratory: Diminished Cardiovascular: Normal : Normal Auscultation: Bowel Sounds: Normal Tenderness: Normal Skin: Decreased Turgur Musculoskeletal: Back:Lumbar Affect: Anxious Speech Pattern: Clear and Appropriate Laboratory and Diagnostics 10/30/23 04:28 10/30/23 04:28 Labs: 10/27/23 19:55 Urine,Clean Catch Urine Culture - Final Laboratory WBC 11.0 X10^3/uL (3.6-10.0) H 10/30/23 04:28 RBC 3.05 X10^6/uL (4.7-6.0) L 10/30/23 04:28 Hgb 10.2 g/dL (13.5-18.0) L 10/30/23 04:28 Hct 30.5 % (42.0-54.0) L 10/30/23 04:28 MCV 99.8 fL (80.0-100.0) 10/30/23 04:28 MCH 33.5 pg (27.0-34.0) 10/30/23 04:28 MCHC 33.6 g/dL (33.0-35.0) 10/30/23 04:28 RDW 13.9 % (11.6-16.5) 10/30/23 04:28 Plt Count 135 X10^3/uL (150.0-450.0) L 10/30/23 04:28 Plt Count Comment Decreased (ADEQUATE) 10/29/23 04:53 MPV 10.6 fL (7.4-11.0) 10/30/23 04:28 Neut % (Auto) 82.7 % (42.0-75.0) H 10/30/23 04:28 Lymph % (Auto) 3.8 % (21.0-51.0) L 10/30/23 04:28 [place] % (Auto) 12.3 % (0.0-13.0) 10/30/23 04:28 Eos % (Auto) 0.5 % (0.9-2.9) L 10/30/23 04:28 Baso % (Auto) 0.7 % (0.2-1.0) 10/30/23 04:28 Neut # (Auto) 9.1 x10^3/uL (2.2-4.8) H 10/30/23 04:28 Lymph # (Auto) 0.4 X10^3/uL (1.3-2.9) L 10/30/23 04:28 [place] # (Auto) 1.4 x10^3/uL (0.3-0.8) H 10/30/23 04:28 Eos # (Auto) 0.1 x10^3/uL (0.0-0.2) 10/30/23 04:28 Baso # (Auto) 0.1 X10^3/uL (0.0-0.1) 10/30/23 04:28 Absolute Nucleated RBC 0.0 /100WBC 10/30/23 04:28 Total Counted 100 10/29/23 04:53 Neutrophils % (Manual) 80 % (39-76) H 10/29/23 04:53 Band Neutrophils % 5 % (0-10) 10/29/23 04:53 Lymphocytes % (Manual) 6 % (13-43) L 10/29/23 04:53 Monocytes % (Manual) 9 % (4-9) 10/29/23 04:53 Plt Morphology Comment Normal (NORMAL) 10/29/23 04:53 RBC Morphology Normal (NORMAL) 10/29/23 04:53 Sodium 127 mmol/L (136-145) L 10/30/23 04:28 Corrected Sodium 131 mmol/L (136-145) L 10/30/23 04:28 Potassium 4.3 mmol/L (3.5-5.1) 10/30/23 04:28 Chloride 97 mmol/L (98-107) L 10/30/23 04:28 Carbon Dioxide 21.1 mmol/L (21-32) 10/30/23 04:28 BUN 55 mg/dL (7-18) H 10/30/23 04:28 Creatinine 3.02 mg/dL (0.70-1.30) H 10/30/23 04:28 Est GFR (MDRD) Af Amer 27 (>60) L 10/30/23 04:28 Est GFR (MDRD) Non-Af 22 (>60) L 10/30/23 04:28 Glucose 264 mg/dL (65-99) H 10/30/23 04:28 POC Glucose (mg/dL) 236 mg/dL (65-99) H 10/30/23 05:11 Calcium 8.1 mg/dL (8.5-10.1) L 10/30/23 04:28 Corrected Calcium 9.9 mg/dL (8.5-10.1) 10/30/23 04:28 Magnesium 2.0 mg/dL (2.0-2.9) 10/30/23 04:28 Total Bilirubin 2.70 mg/dL (0.2-1.0) H 10/30/23 04:28 AST 220 Units/L (15-37) H 10/30/23 04:28 ALT 93 Units/L (12-78) H 10/30/23 04:28 Alkaline Phosphatase 95 Units/L (46-116) 10/30/23 04:28 Creatine Kinase 294 Units/L (39-308) 10/27/23 12:15 Troponin I High Sens 38.4 ng/L (4.0-60.0) 10/27/23 12:15 Total Protein 7.0 g/dL (6.4-8.2) 10/30/23 04:28 Albumin 1.7 g/dL (3.4-5.0) L 10/30/23 04:28 Globulin 5.3 g/dL (2.5-4.5) H 10/30/23 04:28 Albumin/Globulin Ratio 0.3 Ratio (1.1-2.1) L 10/30/23 04:28 Vitamin B12 719 pg/mL (193-986) 10/27/23 12:15 Folate 7.8 ng/mL (>8.6) L 10/27/23 12:15 Specimen Type Catherized urine 10/29/23 09:40 Urine Color [place] (YELLOW) 10/29/23 09:40 Urine Appearance Slightly hazy (CLEAR) 10/29/23 09:40 Urine pH 5.0 (5.0 - 8.0) 10/29/23 09:40 Ur Specific [place] 1.020 (1.000-1.030) 10/29/23 09:40 Urine Protein 2+ (NEGATIVE) 10/29/23 09:40 Urine Glucose (UA) 4+ (NEGATIVE) 10/29/23 09:40 Urine Ketones Negative (NEGATIVE) 10/29/23 09:40 Urine Blood 3+ (NEGATIVE) 10/29/23 09:40 Urine Nitrite Negative (NEGATIVE) 10/29/23 09:40 Urine Bilirubin 1+ (NEGATIVE) 10/29/23 09:40 Urine Urobilinogen 2+ (NORMAL) 10/29/23 09:40 Ur Leukocyte Esterase 1+ (NEGATIVE) 10/29/23 09:40 Urine RBC 0-2 /HPF (0-3) 10/29/23 09:40 Urine WBC 3-5 /HPF (0-5) 10/29/23 09:40 Ur Squamous Epith Cells Rare /HPF (NEGATIVE) 10/29/23 09:40 Amorphous Sediment 1+ /HPF (NEGATIVE) 10/29/23 09:40 Urine Bacteria 2+ /HPF (NEGATIVE) 10/29/23 09:40 Hyaline Casts Rare /LPF (NEGATIVE) 10/27/23 19:55 Granular Casts Few /LPF (NEGATIVE) 10/29/23 09:40 Urine Mucus Rare /HPF (NEGATIVE) 10/29/23 09:40 Ur Culture Indicated? Yes/culture set up 10/29/23 09:40 SARS-CoV-2 (PCR) Negative (NEGATIVE) 10/27/23 12:08 Influenza Type A (PCR) Negative (NEGATIVE) 10/27/23 12:08 Influenza Type B (PCR) Negative (NEGATIVE) 10/27/23 12:08 RSV (PCR) Negative (NEGATIVE) 10/27/23 12:08 Radiology Reviewed: Yes Plan (1) Acute kidney injury (nontraumatic): Status: Acute Plan: Continue IV fluid hydration. The patient's creatinine today has improved to 3.02. He has trended down since being admitted 3 days ago. (2) Poorly controlled diabetes mellitus: Status: Acute Plan: Will cover the patient with a sliding scale regular insulin per protocol. (3) Hyponatremia: Status: Acute Plan: The patient's sodium has improved since yesterday. (4) Atrial fibrillation with RVR: Status: Acute Plan: Currently the patient's heart rate is in the 60s and he is not A- fib. We will monitor this for now and once his blood pressure comes up on hydration therapy we will plan on adding some p.o. Cardizem. (5) Hypotension: Status: Acute Plan: Patient will receive a bolus of 500 cc of normal saline today.
[2023-10-30] MEDS ORDERED: NS 1,000 ML IV 1,000 ML IV ONE (16:30)
[2023-10-30] MEDS: SNACK - Diabetic Appropriate PO SCH (20:25)
[2023-10-30] MEDS: AMBIEN PO SCH (20:25)
[2023-10-31] MEDS: VISTARIL PO SCH ×2 (01:59→10:19)
[2023-10-31] MEDS ORDERED: NS 500 ML IV 500 ML IV ONE (02:21)
[2023-10-31] MEDS: NS 1,000 ML IV 1,000 ML IV SCH ×3 (02:29→18:22)
[2023-10-31] MEDS: MAGNESIUM SULFATE 1 GRAM/100 mL PREMIX 1 G/100 ML BAG IV SCH ×2 (05:01→13:47)
[2023-10-31 05:36] LABS: BASOPHILS # (AUTO) 0.1 X10^3/uL (0.0-0.1); BASOPHILS % (AUTO) 1.1 % (0.2-1.0); EOSINOPHILS # (AUTO) 0.1 x10^3/uL (0.0-0.2); EOSINOPHILS % (AUTO) 1.2 % (0.9-2.9); HEMATOCRIT 28.3 % (42.0-54.0); HEMOGLOBIN 9.5 g/dL (13.5-18.0); LYMPHOCYTES # (AUTO) 0.4 X10^3/uL (1.3-2.9); LYMPHOCYTES % (AUTO) 4.2 % (21.0-51.0); MEAN CORPUSCULAR HEMOGLOBIN 33.5 pg (27.0-34.0); MEAN CORPUSCULAR HGB CONC 33.6 g/dL (33.0-35.0); MEAN CORPUSCULAR VOLUME 99.9 fL (80.0-100.0); MONOCYTES # (AUTO) 0.9 x10^3/uL (0.3-0.8); MONOCYTES % (AUTO) 10.3 % (0.0-13.0); NEUTROPHILS # (AUTO) 7.1 x10^3/uL (2.2-4.8); NEUTROPHILS % (AUTO) 83.2 % (42.0-75.0); PLATELET COUNT 130 X10^3/uL (150.0-450.0); RED BLOOD COUNT 2.83 X10^6/uL (4.7-6.0); RED CELL DISTRIBUTION WIDTH 14.1 % (11.6-16.5); WHITE BLOOD COUNT 8.6 X10^3/uL (3.6-10.0)
[2023-10-31] MEDS: NovoLIN R (or HumuLIN R) SUBCUT PRN ×4 (05:45→21:54)
[2023-10-31 05:47] LABS: ALBUMIN 1.4 g/dL (3.4-5.0); CALCIUM 7.8 mg/dL (8.5-10.1); CARBON DIOXIDE 20.5 mmol/L (21-32); COR CA(FOR HYPOALB) 9.9 mg/dL (8.5-10.1); CREATININE 2.92 mg/dL (0.70-1.30); POTASSIUM 3.8 mmol/L (3.5-5.1); TOTAL PROTEIN 6.5 g/dL (6.4-8.2)
[2023-10-31] MEDS ORDERED: CONSULT PHARMACY - POTASSIUM & MAGNESIUM XX SCH (07:00)
[2023-10-31] MEDS: ROCEPHIN VIAL 1 GRAM 1 G in NS 100 ML IV 100 ML IV SCH (08:39)
[2023-10-31] MEDS ORDERED: MICRO K EXTEN CAP 10 MEQ PO SCH (09:00)
[2023-10-31] MEDS: FOLIC ACID TAB 1 MG PO SCH (09:27)
[2023-10-31] MEDS: ELIQUIS PO SCH ×2 (09:27→20:54)
[2023-10-31] MEDS: FLOMAX PO SCH (09:27)
[2023-10-31] MEDS: TRADJENTA PO SCH (09:28)
[2023-10-31 10:10] LABS: ABG BASE EXCESS -7.4 mmol/L (-2.0-2.0); ABG HCO3 18.1 mmol/L (22-26)
[2023-10-31] MEDS: THIAMINE HCL INJ IM SCH (10:16)
[2023-10-31] MEDS: CARDIZEM CD 120 MG 24-HR PO SCH (10:19)
[2023-10-31] MEDS: PHENOBARBITAL TAB 30 MG (32.4MG) PO SCH (10:19)
[2023-10-31] MEDS ORDERED: LEVAQUIN PREMIX IV 500 MG 500 MG/100 ML BAG IV SCH (11:00)
--- NOTE | 2023-10-31 11:01 | RAD ---
EXAM:CHEST, 1 VIEWHISTORY:possible sepsis;COMPARISON:10/29/2023FINDINGS:enl arged with a tortuous thoracic aorta The cardiac silhouette is unremarkable. Subsegmental atelectasis of the right and left base without focal infiltrate or effusion. The bony thorax is unremarkable.IMPRESSION:Subsegmental atelectasis without focal airspace disease identified.THIS IS AN ELECTRONICALLY VERIFIED FINAL REPORT10/31/2023 10:57 AM - Electronically signed by Breezy Potter MD
[2023-10-31 11:07] LABS: INR 2.74 (0.8-1.3)
[2023-10-31] MEDS: INVANZ IV SCH (11:11)
[2023-10-31] MEDS: NS IV SCH (11:11)
[2023-10-31 11:12] LABS: PHOSPHORUS 1.8 mg/dL (2.6-4.7)
[2023-10-31 11:59] LABS: BILIRUBIN,URINE 1+ (NEGATIVE); BLOOD/HEMOGLOBIN,URINE 5+ (NEGATIVE); GLUCOSE, URINE 4+ (NEGATIVE); KETONES,URINE NEGATIVE (NEGATIVE); LEUKOCYTE ESTERASE ,URINE 1+ (NEGATIVE); NITRITES,URINE NEGATIVE (NEGATIVE); PROTEIN,URINE 3+ (NEGATIVE); UROBILINOGEN,URINE 1+ (NORMAL)
[2023-10-31 12:17] LABS: APPEARANCE,URINE HAZY (CLEAR); COLOR,URINE AMBER (YELLOW)
[2023-10-31 12:18] LABS: BACTERIA,URINE 1+ /HPF (NEGATIVE); GRANULAR CASTS,URINE RARE /LPF (NEGATIVE); HYALINE CASTS, URINE RARE /LPF (NEGATIVE); RBC,URINE TNTC /HPF (0-3); SQUAMOUS EPITHELIAL CELL,UR NEGATIVE /HPF (NEGATIVE); TRANSITIONAL EPI CELLS,URINE RARE /HPF (NEGATIVE)
[2023-10-31] MEDS: PROTONIX INJ 40 MG VIAL IVP SCH (15:51)
[2023-10-31] MEDS: THORAZINE TAB 25 MG PO SCH ×2 (15:52→21:59)
--- NOTE | 2023-10-31 15:55 | EKG ---
Test Reason : upper back pain, restless, shortness of breath Blood Pressure : */* mmHG Vent. Rate : 72 BPM Atrial Rate : 72 BPM P-R Int : 176 ms QRS Dur : 96 ms QT Int : 426 ms P-R-T Axes : 43 -2 4 degrees QTc Int : 466 ms Normal sinus rhythm ST elevation, consider early repolarization, pericarditis, or injury Abnormal ECG When compared with ECG of 29-OCT-2023 18:45, (Unconfirmed) Sinus rhythm has replaced Atrial fibrillation Vent. rate has decreased BY [address] elevation now present in Lateral leads Confirmed by Chon Lucas ([id number]) on 11/01/2023 8:05:50 AM Referred By: Confirmed By: Chon Lucas
--- NOTE | 2023-10-31 17:22 | PCM.PROG ---
Progress Note Progress Note for Day of Date of Exam: 10/31/23 Subjective Subjective: PT IS 63 BM, ER ADMISSION WITH ACUTE RENAL INSUFFICIENCY AND HYPONATREMIA. PT REPORTS HX OF DIABETES AND ARTHRITIS. PT STATES HE HAS NOT TAKEN ANY MEDICATION FOR "SOMETIME NOW" PT HAS BEEN ON GENTLE IV HYDRATION SINCE ADMISSION WITH SLIGHT IMPROVEMENT IN BUN CREAT AT50/2.91 THIS AM. NA 128. PT BS ELEVATED, COVERING WITH SSI. PT REPORTS HE IS REGULAR BEER DRINKER. PT IS ON LIBRIUM AND PRN VISTARIL FOR AGITATION/WITHDRAWAL SYMPTOMS. PT CO LOWER BACK PAIN THIS AM. PT HAS MOBIC ON HOME MEDICATION LIST, WHICH HE CANNOT TAKE DUE TO RENAL IMPAIRMENT. PRN NORCO ADDED FOR PAIN CONTROL. PLAN TO REPEAT AM LABS AND CONTINUE BS AND BP MONITORING Wednesday, 31 October 2023 The patient is resting comfortably this morning. I see that his temperature is 95.4 degrees. He has been hypotensive some over the last few days and now he is becoming hypothermic so I am concerned he may have underlying sepsis. The nurses report that he has been getting choked on his food when he is eating. I am concerned that he could be possibly aspirating when he is getting choked. Will check stat chest x-rays today as well as blood cultures and urinalysis. I will stop his Rocephin and after they get cultures I will have them to start Invanz 1 g IV daily along with Levaquin 500 milligrams IV daily. I will follow- up the results later today when available. Past Medical Family Social History Allergies: Allergies No Known Allergies Allergy (Verified 11/03/22 08:13) Review of Systems ROS: No change since H&P Vital Signs and I&O's Vital Signs: Vital Signs Temperature 95.4 F Temperature 95.4 F Temperature 98.0 F Pulse Rate 75 Pulse Rate 61 Pulse Rate 62 Pulse Rate 67 Pulse Rate 61 Pulse Rate 63 Pulse Rate 62 Pulse Rate 61 Pulse Rate 58 Pulse Rate 58 Respiratory Rate 20 Respiratory Rate 16 Respiratory Rate 17 Respiratory Rate 24 Respiratory Rate 23 Respiratory Rate 20 Respiratory Rate 17 Respiratory Rate 17 Respiratory Rate 20 Respiratory Rate 18 Blood Pressure 107/56 Blood Pressure 99/56 Blood Pressure 99/56 Blood Pressure 90/62 Blood Pressure 90/58 Blood Pressure 82/51 Blood Pressure 84/52 Blood Pressure 84/53 Blood Pressure 74/50 O2 Sat by Pulse Oximetry 99 O2 Sat by Pulse Oximetry 99 O2 Sat by Pulse Oximetry 99 O2 Sat by Pulse Oximetry 99 O2 Sat by Pulse Oximetry 99 O2 Sat by Pulse Oximetry 98 O2 Sat by Pulse Oximetry 97 O2 Sat by Pulse Oximetry 97 O2 Sat by Pulse Oximetry 96 O2 Sat by Pulse Oximetry 97 Intake and Output: Intake & Output 10/28/23 10/29/23 10/30/23 10/31/23 11:59 11:59 11:59 11:59 Intake Total 2475 / 2475 2611 / 2611 3301 / 3301 4535 / 4535 Output Total 1350 / 1350 1750 / 1750 1700 / 1700 750 / 750 Balance 1125 / 1125 861 / 861 1601 / 1601 3785 / 3785 Physical Exam Oriented: Normal Eyes: Normal Ear: Normal Nose: Normal Throat: Dry Respiratory: Diminished Cardiovascular: Normal : Normal Auscultation: Bowel Sounds: Normal Tenderness: Normal Skin: Decreased Turgur Musculoskeletal: Back:Lumbar Affect: Anxious Speech Pattern: Appropriate and Delayed Laboratory and Diagnostics 10/31/23 04:26 10/31/23 04:26 Labs: 10/29/23 09:40 Urine,Catheterized Urine Culture - Final 10/27/23 19:55 Urine,Clean Catch Urine Culture - Final Laboratory WBC 8.6 X10^3/uL (3.6-10.0) 10/31/23 04:26 RBC 2.83 X10^6/uL (4.7-6.0) L 10/31/23 04:26 Hgb 9.5 g/dL (13.5-18.0) L 10/31/23 04:26 Hct 28.3 % (42.0-54.0) L 10/31/23 04:26 MCV 99.9 fL (80.0-100.0) 10/31/23 04:26 MCH 33.5 pg (27.0-34.0) 10/31/23 04:26 MCHC 33.6 g/dL (33.0-35.0) 10/31/23 04:26 RDW 14.1 % (11.6-16.5) 10/31/23 04:26 Plt Count 130 X10^3/uL (150.0-450.0) L 10/31/23 04:26 Plt Count Comment Decreased (ADEQUATE) 10/29/23 04:53 MPV 10.0 fL (7.4-11.0) 10/31/23 04:26 Neut % (Auto) 83.2 % (42.0-75.0) H 10/31/23 04:26 Lymph % (Auto) 4.2 % (21.0-51.0) L 10/31/23 04:26 [place] % (Auto) 10.3 % (0.0-13.0) 10/31/23 04:26 Eos % (Auto) 1.2 % (0.9-2.9) 10/31/23 04:26 Baso % (Auto) 1.1 % (0.2-1.0) H 10/31/23 04:26 Neut # (Auto) 7.1 x10^3/uL (2.2-4.8) H 10/31/23 04:26 Lymph # (Auto) 0.4 X10^3/uL (1.3-2.9) L 10/31/23 04:26 [place] # (Auto) 0.9 x10^3/uL (0.3-0.8) H 10/31/23 04:26 Eos # (Auto) 0.1 x10^3/uL (0.0-0.2) 10/31/23 04:26 Baso # (Auto) 0.1 X10^3/uL (0.0-0.1) 10/31/23 04:26 Absolute Nucleated RBC 0.1 /100WBC 10/31/23 04:26 Total Counted 100 10/29/23 04:53 Neutrophils % (Manual) 80 % (39-76) H 10/29/23 04:53 Band Neutrophils % 5 % (0-10) 10/29/23 04:53 Lymphocytes % (Manual) 6 % (13-43) L 10/29/23 04:53 Monocytes % (Manual) 9 % (4-9) 10/29/23 04:53 Plt Morphology Comment Normal (NORMAL) 10/29/23 04:53 RBC Morphology Normal (NORMAL) 10/29/23 04:53 Sodium 127 mmol/L (136-145) L 10/31/23 04:26 Corrected Sodium 132 mmol/L (136-145) L 10/31/23 04:26 Potassium 3.8 mmol/L (3.5-5.1) 10/31/23 04:26 Chloride 98 mmol/L (98-107) 10/31/23 04:26 Carbon Dioxide 20.5 mmol/L (21-32) L 10/31/23 04:26 BUN 57 mg/dL (7-18) H 10/31/23 04:26 Creatinine 2.92 mg/dL (0.70-1.30) H 10/31/23 04:26 Est GFR (MDRD) Af Amer 28 (>60) L 10/31/23 04:26 Est GFR (MDRD) Non-Af 23 (>60) L 10/31/23 04:26 Glucose 298 mg/dL (65-99) H 10/31/23 04:26 POC Glucose (mg/dL) 288 mg/dL (65-99) H 10/31/23 05:05 Calcium 7.8 mg/dL (8.5-10.1) L 10/31/23 04:26 Corrected Calcium 9.9 mg/dL (8.5-10.1) 10/31/23 04:26 Magnesium 2.0 mg/dL (2.0-2.9) 10/30/23 04:28 Total Bilirubin 2.10 mg/dL (0.2-1.0) H 10/31/23 04:26 AST 139 Units/L (15-37) H 10/31/23 04:26 ALT 75 Units/L (12-78) 10/31/23 04:26 Alkaline Phosphatase 110 Units/L (46-116) 10/31/23 04:26 Creatine Kinase 294 Units/L (39-308) 10/27/23 12:15 Troponin I High Sens 38.4 ng/L (4.0-60.0) 10/27/23 12:15 Total Protein 6.5 g/dL (6.4-8.2) 10/31/23 04:26 Albumin 1.4 g/dL (3.4-5.0) L 10/31/23 04:26 Globulin 5.1 g/dL (2.5-4.5) H 10/31/23 04:26 Albumin/Globulin Ratio 0.3 Ratio (1.1-2.1) L 10/31/23 04:26 Vitamin B12 719 pg/mL (193-986) 10/27/23 12:15 Folate 7.8 ng/mL (>8.6) L 10/27/23 12:15 Specimen Type Catherized urine 10/29/23 09:40 Urine Color [place] (YELLOW) 10/29/23 09:40 Urine Appearance Slightly hazy (CLEAR) 10/29/23 09:40 Urine pH 5.0 (5.0 - 8.0) 10/29/23 09:40 Ur Specific [place] 1.020 (1.000-1.030) 10/29/23 09:40 Urine Protein 2+ (NEGATIVE) 10/29/23 09:40 Urine Glucose (UA) 4+ (NEGATIVE) 10/29/23 09:40 Urine Ketones Negative (NEGATIVE) 10/29/23 09:40 Urine Blood 3+ (NEGATIVE) 10/29/23 09:40 Urine Nitrite Negative (NEGATIVE) 10/29/23 09:40 Urine Bilirubin 1+ (NEGATIVE) 10/29/23 09:40 Urine Urobilinogen 2+ (NORMAL) 10/29/23 09:40 Ur Leukocyte Esterase 1+ (NEGATIVE) 10/29/23 09:40 Urine RBC 0-2 /HPF (0-3) 10/29/23 09:40 Urine WBC 3-5 /HPF (0-5) 10/29/23 09:40 Ur Squamous Epith Cells Rare /HPF (NEGATIVE) 10/29/23 09:40 Amorphous Sediment 1+ /HPF (NEGATIVE) 10/29/23 09:40 Urine Bacteria 2+ /HPF (NEGATIVE) 10/29/23 09:40 Hyaline Casts Rare /LPF (NEGATIVE) 10/27/23 19:55 Granular Casts Few /LPF (NEGATIVE) 10/29/23 09:40 Urine Mucus Rare /HPF (NEGATIVE) 10/29/23 09:40 Ur Culture Indicated? Yes/culture set up 10/29/23 09:40 SARS-CoV-2 (PCR) Negative (NEGATIVE) 10/27/23 12:08 Influenza Type A (PCR) Negative (NEGATIVE) 10/27/23 12:08 Influenza Type B (PCR) Negative (NEGATIVE) 10/27/23 12:08 RSV (PCR) Negative (NEGATIVE) 10/27/23 12:08 Plan (1) Hypothermia: Status: Acute Plan: We are starting the patient on sepsis pathway this morning. I am concerned with his hypotension yesterday and the night before and now he is hypothermic this morning. These can be indicators that the patient could be developing sepsis so we will investigate that. After we collect a blood culture x 2 and a urinalysis we will add on IV ertapenem and IV Levaquin. (2) Hypotension: Status: Acute Plan: Patient will receive a bolus of 500 cc of normal saline today. (3) Acute kidney injury (nontraumatic): Status: Acute Plan: Continue IV fluid hydration. The patient's creatinine today is 2.92. This is improved from 3.01 yesterday. We did increase his IV fluid rate yesterday. (4) Poorly controlled diabetes mellitus: Status: Acute Plan: Will cover the patient with a sliding scale regular insulin per protocol. (5) Hyponatremia: Status: Acute Plan: The patient's sodium has improved since yesterday. (6) Atrial fibrillation with RVR: Status: Acute Plan: Currently the patient's heart rate is in the 60s and he is not A- fib. We will monitor this for now and once his blood pressure comes up on hydration therapy we will plan on adding some p.o. Cardizem.
[2023-10-31] MEDS: AMBIEN PO SCH (20:54)
[2023-10-31] MEDS: SNACK - Diabetic Appropriate PO SCH (20:54)
[2023-11-01] MEDS ORDERED: HIBICLENS WASH EXT ONE (00:03)
[2023-11-01] MEDS: NS 1,000 ML IV 1,000 ML IV SCH ×3 (01:25→22:02)
[2023-11-01 05:17] LABS: ERYTHROCYTE SEDIMENTATION RATE 130 MM/HOUR (0-15)
[2023-11-01 05:22] LABS: BASOPHILS % (AUTO) 0.4 % (0.2-1.0); EOSINOPHILS % (AUTO) 0.5 % (0.9-2.9); HEMOGLOBIN 9.2 g/dL (13.5-18.0); LYMPHOCYTES # (AUTO) 0.4 X10^3/uL (1.3-2.9); LYMPHOCYTES % (AUTO) 4.1 % (21.0-51.0); MEAN CORPUSCULAR HEMOGLOBIN 33.6 pg (27.0-34.0); MEAN CORPUSCULAR VOLUME 98.8 fL (80.0-100.0); MEAN PLATELET VOLUME 10.1 fL (7.4-11.0); MONOCYTES # (AUTO) 1.1 x10^3/uL (0.3-0.8); MONOCYTES % (AUTO) 11.4 % (0.0-13.0); NEUTROPHILS # (AUTO) 8.3 x10^3/uL (2.2-4.8); NEUTROPHILS % (AUTO) 83.6 % (42.0-75.0); PLATELET COUNT 140 X10^3/uL (150.0-450.0); RED BLOOD COUNT 2.73 X10^6/uL (4.7-6.0); WHITE BLOOD COUNT 9.9 X10^3/uL (3.6-10.0)
[2023-11-01] MEDS: NovoLIN R (or HumuLIN R) SUBCUT PRN ×2 (05:37→11:55)
[2023-11-01 05:41] LABS: ALBUMIN 1.3 g/dL (3.4-5.0); CARBON DIOXIDE 18.4 mmol/L (21-32); COR CA(FOR HYPOALB) 10.2 mg/dL (8.5-10.1); CREATININE 2.8 mg/dL (0.70-1.30); MAGNESIUM 2.9 mg/dL (2.0-2.9); TOTAL PROTEIN 6.5 g/dL (6.4-8.2)
[2023-11-01] MEDS: THORAZINE TAB 25 MG PO SCH ×3 (05:43→21:09)
[2023-11-01 05:52] LABS: POTASSIUM 3.9 mmol/L (3.5-5.1)
[2023-11-01 06:12] LABS: BAND NEUTROPHILS % 6 % (0-10); PLATELET MORPHOLOGY COMMENT NORMAL (NORMAL)
[2023-11-01] MEDS ORDERED: DIPRIVAN VIAL 20 ML ONE (07:43)
[2023-11-01] MEDS ORDERED: NS 500 ML IV 500 ML IV ONE (07:54)
[2023-11-01] MEDS: ELIQUIS PO SCH ×2 (08:43→21:09)
[2023-11-01] MEDS: TRADJENTA PO SCH (08:44)
[2023-11-01] MEDS: FLOMAX PO SCH (08:44)
[2023-11-01] MEDS: FOLIC ACID TAB 1 MG PO SCH (08:44)
[2023-11-01] MEDS: INVANZ IV SCH (08:55)
[2023-11-01] MEDS: PROTONIX INJ 40 MG VIAL IVP SCH (08:55)
[2023-11-01] MEDS: THIAMINE HCL INJ IM SCH (08:55)
[2023-11-01] MEDS: NS IV SCH (08:55)
--- NOTE | 2023-11-01 13:13 | PCM.PROG ---
Progress Note - Progress Note for Day of Date of Exam: 11/01/23 - Subjective Subjective: PT IS 63 BM. HE WAS ADMITTED FROM THE ER TO WITH ACUTE RENAL INSUFFICIENCY AND HYPONATREMIA. HE DOES NOT HAVE A REGULAR PCP. PT REPORTS HX OF DIABETES AND ARTHRITIS. PTS FAMILY REPORTS THAT HE HAS NOT TAKEN ANY MEDICATION FOR "SOMETIME NOW". PT HAS BEEN ON GENTLE IV HYDRATION SINCE ADMISSION WITH SLIGHT IMPROVEMENT IN BUN CREAT THIS AM. HE UNDERWENT AN EGD THIS MORNING DUE TO DYSPHAGIA. EGD REVEALED MILD TO MODERATE ESOPHAGEAL DYSFUNCTION AND MODERATE GASTROPARESIS. PT IS REGULAR BEER DRINKER. ON EXAMINATION TODAY, PATIENT IS LYING IN BED WITH EYES CLOSED. HE OPENS EYES TO VERBAL STIMULI, BUT IS DROWSY. HE HAS RECENTLY RETURNED FROM THE OR FOR ENDOSCOPY. HEART IS REGULAR IN RATE AND RHYTHM. BILATERAL LUNGS ARE NOTED WITH DIMINISHED LUNG SOUNDS THROUGHOUT. ABDOMEN IS ROUND, SOFT, AND NON-TENDER WITH NORMAL BOWEL SOUNDS NOTED IN ALL QUADRANTS. NO LOWER EXTREMITY EDEMA IS NOTED. HIS VITALS THIS MORNING ARE: 97.3-32-61-100-82/49. LABS WERE OBTAINED. WBC 9.9, RBC 2.73, HGB 9.2, HCT 27.0, PLT COUNT 140, SODIUM 130, POTASSIUM 3.9, CHLORIDE 100, CARBON DIOXIDE 18.4, BUN 55, CREATININE 2.80, GLUCOSE 238, CALCIUM 8.0, MAGNESIUM 2.9, TOTAL BILI 1.90, AST 119, ALT 65, ALK PHOS 134, CRP 175.60, TOTAL PROTEIN 6.5, ALBUMIN 1.3. DUE TO POSSIBLE ASPIRATION AND THE CONCERN OF SEPSIS, PATIENT WAS STARTED ON IV ANTIBIOTICS YESTERDAY. WE WILL CONTINUE HIS IV FLUIDS, IV ANTIBIOTICS, BLOOD GLUCOSE CONTROL, AND CURRENT PLAN OF CARE TODAY. OTHERWISE, WE WILL FOLLOW UP WITH AM LABS AND CONTINUE TO MONITOR. TIME SPENT ON CLINICAL ASSESSMENT, REVIEWING LABS AND IMAGING, DECISION MAKING, AND DOCUMENTATION GREATER THAN 45 MINUTES. - Past Medical Family Social History Past Med/Fam/Surg Hx: No changes since H&P Allergies: Allergies No Known Allergies Allergy (Verified 11/03/22 08:13) - Review of Systems ROS: No change since H&P - Vital Signs and I&O's Vital Signs: Vital Signs Temperature 97.7 F Temperature 97.6 F Temperature 97.6 F Temperature 97.6 F Temperature 97.6 F Temperature 97.6 F Temperature 97.7 F Pulse Rate 66 Pulse Rate 67 Pulse Rate 67 Pulse Rate 68 Pulse Rate 67 Pulse Rate 64 Pulse Rate 64 Pulse Rate 64 Pulse Rate 66 Pulse Rate 67 Pulse Rate 68 Pulse Rate 68 Pulse Rate 71 Pulse Rate 71 Pulse Rate 72 Pulse Rate 72 Pulse Rate 72 Pulse Rate 79 Pulse Rate 74 Pulse Rate 74 Pulse Rate 75 Pulse Rate 75 Pulse Rate 66 Pulse Rate 66 Pulse Rate 65 Pulse Rate 67 Pulse Rate 65 Pulse Rate 66 Respiratory Rate 22 Respiratory Rate 21 Respiratory Rate 19 Respiratory Rate 23 Respiratory Rate 17 Respiratory Rate 15 Respiratory Rate 22 Respiratory Rate 22 Respiratory Rate 22 Respiratory Rate 17 Respiratory Rate 10 Respiratory Rate 18 Respiratory Rate 12 Respiratory Rate 0 Respiratory Rate 23 Respiratory Rate 23 Respiratory Rate 18 Respiratory Rate 28 Respiratory Rate 18 Respiratory Rate 21 Respiratory Rate 21 Respiratory Rate 23 Respiratory Rate 20 Respiratory Rate 23 Respiratory Rate 21 Respiratory Rate 23 Respiratory Rate 24 Respiratory Rate 23 Blood Pressure 90/54 Blood Pressure 92/55 Blood Pressure 90/51 Blood Pressure 97/56 Blood Pressure 86/50 Blood Pressure 93/51 Blood Pressure 98/57 Blood Pressure 93/52 Blood Pressure 88/54 Blood Pressure 95/56 Blood Pressure 92/55 Blood Pressure 92/55 Blood Pressure 86/52 Blood Pressure 86/52 Blood Pressure 90/52 Blood Pressure 90/52 Blood Pressure 119/57 Blood Pressure 119/57 Blood Pressure 82/49 Blood Pressure 82/49 Blood Pressure 85/50 Blood Pressure 94/55 Blood Pressure 93/52 Blood Pressure 79/50 Blood Pressure 93/52 Blood Pressure 82/52 Blood Pressure 82/52 O2 Sat by Pulse Oximetry 100 O2 Sat by Pulse Oximetry 100 O2 Sat by Pulse Oximetry 100 O2 Sat by Pulse Oximetry 100 O2 Sat by Pulse Oximetry 100 O2 Sat by Pulse Oximetry 100 O2 Sat by Pulse Oximetry 100 O2 Sat by Pulse Oximetry 100 O2 Sat by Pulse Oximetry 100 O2 Sat by Pulse Oximetry 100 O2 Sat by Pulse Oximetry 100 O2 Sat by Pulse Oximetry 100 O2 Sat by Pulse Oximetry 100 O2 Sat by Pulse Oximetry 100 O2 Sat by Pulse Oximetry 100 O2 Sat by Pulse Oximetry 100 O2 Sat by Pulse Oximetry 100 O2 Sat by Pulse Oximetry 100 O2 Sat by Pulse Oximetry 100 O2 Sat by Pulse Oximetry 100 O2 Sat by Pulse Oximetry 100 O2 Sat by Pulse Oximetry 100 O2 Sat by Pulse Oximetry 100 O2 Sat by Pulse Oximetry 100 O2 Sat by Pulse Oximetry 100 Intake and Output: Intake & Output 10/30/23 10/31/23 11/01/2324 11:59 11:59 11:59 11:59 Intake Total 3301 / 3301 4535 / 4535 3029 / 3029 Output Total 1700 / 1700 750 / 750 900 / 900 Balance 1601 / 1601 3785 / 3785 2128 - Physical Exam Oriented: Unable to test Eyes: Normal Ear: Normal Nose: Normal Throat: Dry Respiratory: Diminished Cardiovascular: Normal : Normal Auscultation: Bowel Sounds: Normal Palpation: Normal Tenderness: Normal Skin: Decreased Turgur Musculoskeletal: Back:Lumbar Affect: Anxious Speech Pattern: Appropriate, Delayed, Slurred - Laboratory and Diagnostics Result Diagrams: 11/01/23 04:40 11/01/23 04:40 Labs: 10/29/23 09:40 Urine,Catheterized Urine Culture - Final 10/27/23 19:55 Urine,Clean Catch Urine Culture - Final Laboratory WBC 9.9 X10^3/uL (3.6-10.0) 11/01/23 04:40 RBC 2.73 X10^6/uL (4.7-6.0) L 11/01/23 04:40 Hgb 9.2 g/dL (13.5-18.0) L 11/01/23 04:40 Hct 27.0 % (42.0-54.0) L 11/01/23 04:40 MCV 98.8 fL (80.0-100.0) 11/01/23 04:40 MCH 33.6 pg (27.0-34.0) 11/01/23 04:40 MCHC 34.0 g/dL (33.0-35.0) 11/01/23 04:40 RDW 14.0 % (11.6-16.5) 11/01/23 04:40 Plt Count 140 X10^3/uL (150.0-450.0) L 11/01/23 04:40 Plt Count Comment Decreased (ADEQUATE) 11/01/23 04:40 MPV 10.1 fL (7.4-11.0) 11/01/23 04:40 Neut % (Auto) 83.6 % (42.0-75.0) H 11/01/23 04:40 Lymph % (Auto) 4.1 % (21.0-51.0) L 11/01/23 04:40 [place] % (Auto) 11.4 % (0.0-13.0) 11/01/23 04:40 Eos % (Auto) 0.5 % (0.9-2.9) L 11/01/23 04:40 Baso % (Auto) 0.4 % (0.2-1.0) 11/01/23 04:40 Neut # (Auto) 8.3 x10^3/uL (2.2-4.8) H 11/01/23 04:40 Lymph # (Auto) 0.4 X10^3/uL (1.3-2.9) L 11/01/23 04:40 [place] # (Auto) 1.1 x10^3/uL (0.3-0.8) H 11/01/23 04:40 Eos # (Auto) 0.0 x10^3/uL (0.0-0.2) 11/01/23 04:40 Baso # (Auto) 0.0 X10^3/uL (0.0-0.1) 11/01/23 04:40 Absolute Nucleated RBC 0.2 /100WBC 11/01/23 04:40 Total Counted 100 11/01/23 04:40 Neutrophils % (Manual) 79 % (39-76) H 11/01/23 04:40 Band Neutrophils % 6 % (0-10) 11/01/23 04:40 Lymphocytes % (Manual) 7 % (13-43) L 11/01/23 04:40 Monocytes % (Manual) 7 % (4-9) 11/01/23 04:40 Plt Morphology Comment Normal (NORMAL) 11/01/23 04:40 RBC Morphology Normal (NORMAL) 11/01/23 04:40 ESR 130 MM/HOUR (0-15) H 11/01/23 04:40 PT 28.6 SECONDS (11.8-14.3) 10/31/23 10:31 INR Target Range - 10/31/23 10:31 INR 2.74 (0.8-1.3) H 10/31/23 10:31 APTT 40.3 SECONDS (22.9-36.5) H 10/31/23 10:31 PTT Comment - 10/31/23 10:31 Sample Site Rb 10/31/23 10:05 ABG pH 7.310 (7.35-7.45) L 10/31/23 10:05 ABG pCO2 36.0 mmHg (35.0-45.0) 10/31/23 10:05 ABG pO2 78.0 mmHg (80.0-100.0) L 10/31/23 10:05 ABG HCO3 18.1 mmol/L (22-26) L 10/31/23 10:05 ABG O2 Saturation 94.0 % (90-100) 10/31/23 10:05 ABG Base Excess -7.4 mmol/L (-2.0-2.0) L 10/31/23 10:05 Brayan Test Na 10/31/23 10:05 A-a Gradient 27.0 mmHg 10/31/23 10:05 FiO2 21.0 10/31/23 10:05 Blood Gas Comments Pt florentino well cdn 10/31/23 10:05 Sodium 130 mmol/L (136-145) L 11/01/23 04:40 Corrected Sodium 133 mmol/L (136-145) L 11/01/23 04:40 Potassium 3.9 mmol/L (3.5-5.1) 11/01/23 04:40 Chloride 100 mmol/L (98-107) 11/01/23 04:40 Carbon Dioxide 18.4 mmol/L (21-32) L 11/01/23 04:40 BUN 55 mg/dL (7-18) H 11/01/23 04:40 Creatinine 2.80 mg/dL (0.70-1.30) H 11/01/23 04:40 Est GFR (MDRD) Af Amer 29 (>60) L 11/01/23 04:40 Est GFR (MDRD) Non-Af 24 (>60) L 11/01/23 04:40 Glucose 238 mg/dL (65-99) H 11/01/23 04:40 POC Glucose (mg/dL) 213 mg/dL (65-99) H 11/01/23 11:17 Lactic Acid 1.9 mmol/L (0.4-2.0) 10/31/23 13:20 Calcium 8.0 mg/dL (8.5-10.1) L 11/01/23 04:40 Corrected Calcium 10.2 mg/dL (8.5-10.1) H 11/01/23 04:40 Phosphorus 1.8 mg/dL (2.6-4.7) L 10/31/23 10:20 Magnesium 2.9 mg/dL (2.0-2.9) 11/01/23 04:40 Total Bilirubin 1.90 mg/dL (0.2-1.0) H 11/01/23 04:40 AST 119 Units/L (15-37) H 11/01/23 04:40 ALT 65 Units/L (12-78) 11/01/23 04:40 Alkaline Phosphatase 134 Units/L (46-116) H 11/01/23 04:40 Creatine Kinase 294 Units/L (39-308) 10/27/23 12:15 Troponin I High Sens 15.0 ng/L (4.0-60.0) 10/31/23 21:30 C-Reactive Protein 175.60 mg/L (0-3.0) H 11/01/23 04:40 Total Protein 6.5 g/dL (6.4-8.2) 11/01/23 04:40 Albumin 1.3 g/dL (3.4-5.0) L 11/01/23 04:40 Globulin 5.2 g/dL (2.5-4.5) H 11/01/23 04:40 Albumin/Globulin Ratio 0.3 Ratio (1.1-2.1) L 11/01/23 04:40 Vitamin B12 719 pg/mL (193-986) 10/27/23 12:15 Folate 7.8 ng/mL (>8.6) L 10/27/23 12:15 Specimen Type Catherized urine 10/31/23 11:18 Urine Color Tran (YELLOW) 10/31/23 11:18 Urine Appearance Hazy (CLEAR) 10/31/23 11:18 Urine pH 5.0 (5.0 - 8.0) 10/31/23 11:18 Ur Specific [place] 1.020 (1.000-1.030) 10/31/23 11:18 Urine Protein 3+ (NEGATIVE) 10/31/23 11:18 Urine Glucose (UA) 4+ (NEGATIVE) 10/31/23 11:18 Urine Ketones Negative (NEGATIVE) 10/31/23 11:18 Urine Blood 5+ (NEGATIVE) 10/31/23 11:18 Urine Nitrite Negative (NEGATIVE) 10/31/23 11:18 Urine Bilirubin 1+ (NEGATIVE) 10/31/23 11:18 Urine Urobilinogen 1+ (NORMAL) 10/31/23 11:18 Ur Leukocyte Esterase 1+ (NEGATIVE) 10/31/23 11:18 Urine RBC Tntc /HPF (0-3) A 10/31/23 11:18 Urine WBC 0-2 /HPF (0-5) 10/31/23 11:18 Ur Squamous Epith Cells Negative /HPF (NEGATIVE) 10/31/23 11:18 Ur Transition Epith Cell Rare /HPF (NEGATIVE) 10/31/23 11:18 Amorphous Sediment 2+ /HPF (NEGATIVE) 10/31/23 11:18 Urine Bacteria 1+ /HPF (NEGATIVE) 10/31/23 11:18 Hyaline Casts Rare /LPF (NEGATIVE) 10/31/23 11:18 Granular Casts Rare /LPF (NEGATIVE) 10/31/23 11:18 Urine Mucus Rare /HPF (NEGATIVE) 10/31/23 11:18 Ur Culture Indicated? No/not indicated 10/31/23 11:18 SARS-CoV-2 (PCR) Negative (NEGATIVE) 10/27/23 12:08 Influenza Type A (PCR) Negative (NEGATIVE) 10/27/23 12:08 Influenza Type B (PCR) Negative (NEGATIVE) 10/27/23 12:08 RSV (PCR) Negative (NEGATIVE) 10/27/23 12:08 - Plan (1) Hypothermia Status: Acute Plan: patient was started on sepsis pathway yesterday. could be developing sepsis. (2) Hypotension Status: Acute Qualifiers: Hypotension type: unspecified hypotension type Qualified Code(s): I95.9 - Hypotension, unspecified (3) Acute kidney injury (nontraumatic) Status: Acute Plan: Continue IV fluid hydration. (4) Atrial fibrillation with RVR Status: Acute Plan: Currently the patient's heart rate is in the 60s and he is not A-fib. We will monitor this for now and once his blood pressure comes up on hydration therapy we will plan on adding some p.o. Cardizem. (5) Hyponatremia Status: Acute Plan: The patient's sodium has improved since yesterday. (6) Poorly controlled diabetes mellitus Status: Acute Plan: Will cover the patient with a sliding scale regular insulin per protocol.
[2023-11-01] MEDS: SNACK - Diabetic Appropriate PO SCH (21:05)
[2023-11-01] MEDS: PHENOBARBITAL TAB 15 MG (16.2MG) PO SCH (21:10)
[2023-11-02 05:04] LABS: BASOPHILS # (AUTO) 0.1 X10^3/uL (0.0-0.1); EOSINOPHILS % (AUTO) 0.5 % (0.9-2.9); HEMOGLOBIN 8.8 g/dL (13.5-18.0); LYMPHOCYTES # (AUTO) 0.7 X10^3/uL (1.3-2.9); LYMPHOCYTES % (AUTO) 7.9 % (21.0-51.0); MEAN CORPUSCULAR HEMOGLOBIN 33.7 pg (27.0-34.0); MEAN CORPUSCULAR VOLUME 98.9 fL (80.0-100.0); MEAN PLATELET VOLUME 9.5 fL (7.4-11.0); MONOCYTES % (AUTO) 10.6 % (0.0-13.0); NEUTROPHILS # (AUTO) 7.5 x10^3/uL (2.2-4.8); PLATELET COUNT 160 X10^3/uL (150.0-450.0); RED BLOOD COUNT 2.63 X10^6/uL (4.7-6.0); RED CELL DISTRIBUTION WIDTH 14.1 % (11.6-16.5); WHITE BLOOD COUNT 9.4 X10^3/uL (3.6-10.0)
[2023-11-02 05:11] LABS: ALBUMIN 1.2 g/dL (3.4-5.0); CARBON DIOXIDE 16.5 mmol/L (21-32); COR CA(FOR HYPOALB) 10.2 mg/dL (8.5-10.1); CREATININE 3.03 mg/dL (0.70-1.30); POTASSIUM 4.5 mmol/L (3.5-5.1); TOTAL PROTEIN 6.8 g/dL (6.4-8.2)
[2023-11-02] MEDS: THORAZINE TAB 25 MG PO SCH (05:37)
[2023-11-02 05:43] LABS: BAND NEUTROPHILS % 4 % (0-10); PLATELET MORPHOLOGY COMMENT NORMAL (NORMAL)
[2023-11-02] MEDS: NS 1,000 ML IV 1,000 ML IV SCH ×3 (07:02→11:27)
--- NOTE | 2023-11-02 08:31 | DR.PROGNOT ---
HOSPITAL PROGRESS NOTE Progress Note for Day of: Progress Note Date: 11/02/23 Chief Complaint Chief Complaint: Getting out of bed, no acute distress. WBC 9.4, hemoglobin 8.8, BUN 57.. Creatinine .. blood sugar 225 Past Medical Family Social History Past Med/Fam/Surg Hx: No changes since H&P Allergies: Allergies No Known Allergies Allergy (Verified 11/03/22 08:13) Review Of Systems ROS: No change since H&P Vital Signs Vital Signs: Vital Signs Temperature 97.8 F Temperature 98.0 F Pulse Rate 87 Pulse Rate 84 Pulse Rate 82 Pulse Rate 81 Pulse Rate 83 Pulse Rate 76 Pulse Rate 81 Pulse Rate 80 Pulse Rate 80 Pulse Rate 80 Pulse Rate 79 Pulse Rate 80 Pulse Rate 81 Pulse Rate 80 Pulse Rate 81 Pulse Rate 79 Pulse Rate 79 Pulse Rate 78 Pulse Rate 80 Pulse Rate 77 Pulse Rate 77 Pulse Rate 77 Pulse Rate 77 Pulse Rate 78 Pulse Rate 78 Pulse Rate 79 Pulse Rate 79 Pulse Rate 78 Pulse Rate 79 Pulse Rate 77 Pulse Rate 76 Respiratory Rate 16 Respiratory Rate 26 Respiratory Rate 31 Respiratory Rate 25 Respiratory Rate 26 Respiratory Rate 25 Respiratory Rate 25 Respiratory Rate 23 Respiratory Rate 23 Respiratory Rate 22 Respiratory Rate 22 Respiratory Rate 20 Respiratory Rate 20 Respiratory Rate 21 Respiratory Rate 16 Respiratory Rate 21 Respiratory Rate 20 Respiratory Rate 25 Respiratory Rate 16 Respiratory Rate 12 Respiratory Rate 20 Respiratory Rate 24 Respiratory Rate 24 Respiratory Rate 21 Respiratory Rate 22 Respiratory Rate 23 Respiratory Rate 23 Respiratory Rate 22 Respiratory Rate 23 Respiratory Rate 25 Respiratory Rate 22 Blood Pressure 116/58 Blood Pressure 115/57 Blood Pressure 103/53 Blood Pressure 101/53 Blood Pressure 96/55 Blood Pressure 95/50 Blood Pressure 105/57 Blood Pressure 99/52 Blood Pressure 99/52 Blood Pressure 96/50 Blood Pressure 94/50 Blood Pressure 97/50 Blood Pressure 97/50 Blood Pressure 97/50 Blood Pressure 102/51 Blood Pressure 94/49 Blood Pressure 96/49 Blood Pressure 96/51 Blood Pressure 96/49 Blood Pressure 96/51 Blood Pressure 95/50 Blood Pressure 95/52 Blood Pressure 89/50 Blood Pressure 89/50 Blood Pressure 95/52 Blood Pressure 97/53 Blood Pressure 98/54 Blood Pressure 97/50 Blood Pressure 97/50 Blood Pressure 101/51 Blood Pressure 91/50 O2 Sat by Pulse Oximetry 100 O2 Sat by Pulse Oximetry 100 O2 Sat by Pulse Oximetry 100 O2 Sat by Pulse Oximetry 100 O2 Sat by Pulse Oximetry 100 O2 Sat by Pulse Oximetry 100 O2 Sat by Pulse Oximetry 100 O2 Sat by Pulse Oximetry 100 O2 Sat by Pulse Oximetry 100 O2 Sat by Pulse Oximetry 100 O2 Sat by Pulse Oximetry 100 O2 Sat by Pulse Oximetry 100 O2 Sat by Pulse Oximetry 100 O2 Sat by Pulse Oximetry 100 O2 Sat by Pulse Oximetry 100 O2 Sat by Pulse Oximetry 100 O2 Sat by Pulse Oximetry 100 O2 Sat by Pulse Oximetry 100 O2 Sat by Pulse Oximetry 100 O2 Sat by Pulse Oximetry 100 O2 Sat by Pulse Oximetry 100 O2 Sat by Pulse Oximetry 100 O2 Sat by Pulse Oximetry 100 O2 Sat by Pulse Oximetry 100 O2 Sat by Pulse Oximetry 100 O2 Sat by Pulse Oximetry 100 O2 Sat by Pulse Oximetry 100 O2 Sat by Pulse Oximetry 100 O2 Sat by Pulse Oximetry 100 O2 Sat by Pulse Oximetry 100 O2 Sat by Pulse Oximetry 100 Physical Exam Oriented: Unable to test Eyes: Normal Ear: Normal Nose: Normal Throat: Dry Respiratory: Diminished Cardiovascular: Normal : Normal GI:Auscultation: Normal GI:Palpation: Normal GI: Tenderness: Normal Skin: Decreased Turgur Musculoskeletal: Back:Lumbar Affect: Anxious Speech Pattern: Appropriate, Delayed and Slurred Laboratory and Diagnostics 11/02/23 04:31 11/02/23 04:31 Labs: 10/31/23 10:30 Blood Blood Culture - Preliminary 10/31/23 10:22 Blood Blood Culture - Preliminary 10/29/23 09:40 Urine,Catheterized Urine Culture - Final 10/27/23 19:55 Urine,Clean Catch Urine Culture - Final Laboratory WBC 9.4 X10^3/uL (3.6-10.0) 11/02/23 04:31 RBC 2.63 X10^6/uL (4.7-6.0) L 11/02/23 04:31 Hgb 8.8 g/dL (13.5-18.0) L 11/02/23 04:31 Hct 26.0 % (42.0-54.0) L 11/02/23 04:31 MCV 98.9 fL (80.0-100.0) 11/02/23 04:31 MCH 33.7 pg (27.0-34.0) 11/02/23 04:31 MCHC 34.0 g/dL (33.0-35.0) 11/02/23 04:31 RDW 14.1 % (11.6-16.5) 11/02/23 04:31 Plt Count 160 X10^3/uL (150.0-450.0) 11/02/23 04:31 Plt Count Comment Adequate (ADEQUATE) 11/02/23 04:31 MPV 9.5 fL (7.4-11.0) 11/02/23 04:31 Neut % (Auto) 80.0 % (42.0-75.0) H 11/02/23 04:31 Lymph % (Auto) 7.9 % (21.0-51.0) L 11/02/23 04:31 [place] % (Auto) 10.6 % (0.0-13.0) 11/02/23 04:31 Eos % (Auto) 0.5 % (0.9-2.9) L 11/02/23 04:31 Baso % (Auto) 1.0 % (0.2-1.0) 11/02/23 04:31 Neut # (Auto) 7.5 x10^3/uL (2.2-4.8) H 11/02/23 04:31 Lymph # (Auto) 0.7 X10^3/uL (1.3-2.9) L 11/02/23 04:31 [place] # (Auto) 1.0 x10^3/uL (0.3-0.8) H 11/02/23 04:31 Eos # (Auto) 0.0 x10^3/uL (0.0-0.2) 11/02/23 04:31 Baso # (Auto) 0.1 X10^3/uL (0.0-0.1) 11/02/23 04:31 Absolute Nucleated RBC 0.4 /100WBC 11/02/23 04:31 Total Counted 100 11/02/23 04:31 Neutrophils % (Manual) 70 % (39-76) 11/02/23 04:31 Band Neutrophils % 4 % (0-10) 11/02/23 04:31 Lymphocytes % (Manual) 13 % (13-43) 11/02/23 04:31 Monocytes % (Manual) 12 % (4-9) H 11/02/23 04:31 Eosinophils % (Manual) 1 % (0-6) 11/02/23 04:31 Atypical Lymphocytes Few 11/02/23 04:31 Plt Morphology Comment Normal (NORMAL) 11/02/23 04:31 RBC Morphology Normal (NORMAL) 11/02/23 04:31 ESR 130 MM/HOUR (0-15) H 11/01/23 04:40 PT 28.6 SECONDS (11.8-14.3) 10/31/23 10:31 INR Target Range - 10/31/23 10:31 INR 2.74 (0.8-1.3) H 10/31/23 10:31 APTT 40.3 SECONDS (22.9-36.5) H 10/31/23 10:31 PTT Comment - 10/31/23 10:31 Sample Site Rb 10/31/23 10:05 ABG pH 7.310 (7.35-7.45) L 10/31/23 10:05 ABG pCO2 36.0 mmHg (35.0-45.0) 10/31/23 10:05 ABG pO2 78.0 mmHg (80.0-100.0) L 10/31/23 10:05 ABG HCO3 18.1 mmol/L (22-26) L 10/31/23 10:05 ABG O2 Saturation 94.0 % (90-100) 10/31/23 10:05 ABG Base Excess -7.4 mmol/L (-2.0-2.0) L 10/31/23 10:05 Brayan Test Na 10/31/23 10:05 A-a Gradient 27.0 mmHg 10/31/23 10:05 FiO2 21.0 10/31/23 10:05 Blood Gas Comments Pt florentino well cdn 10/31/23 10:05 Sodium 132 mmol/L (136-145) L 11/02/23 04:31 Corrected Sodium 135 mmol/L (136-145) L 11/02/23 04:31 Potassium 4.5 mmol/L (3.5-5.1) 11/02/23 04:31 Chloride 102 mmol/L (98-107) 11/02/23 04:31 Carbon Dioxide 16.5 mmol/L (21-32) L 11/02/23 04:31 BUN 57 mg/dL (7-18) H 11/02/23 04:31 Creatinine 3.03 mg/dL (0.70-1.30) H 11/02/23 04:31 Est GFR (MDRD) Af Amer 27 (>60) L 11/02/23 04:31 Est GFR (MDRD) Non-Af 22 (>60) L 11/02/23 04:31 Glucose 224 mg/dL (65-99) H 11/02/23 04:31 POC Glucose (mg/dL) 225 mg/dL (65-99) H 11/02/23 04:35 Lactic Acid 1.9 mmol/L (0.4-2.0) 10/31/23 13:20 Calcium 8.0 mg/dL (8.5-10.1) L 11/02/23 04:31 Corrected Calcium 10.2 mg/dL (8.5-10.1) H 11/02/23 04:31 Phosphorus 1.8 mg/dL (2.6-4.7) L 10/31/23 10:20 Magnesium 2.9 mg/dL (2.0-2.9) 11/01/23 04:40 Total Bilirubin 2.40 mg/dL (0.2-1.0) H 11/02/23 04:31 AST 106 Units/L (15-37) H 11/02/23 04:31 ALT 55 Units/L (12-78) 11/02/23 04:31 Alkaline Phosphatase 151 Units/L (46-116) H 11/02/23 04:31 Creatine Kinase 294 Units/L (39-308) 10/27/23 12:15 Troponin I High Sens 15.0 ng/L (4.0-60.0) 10/31/23 21:30 C-Reactive Protein 175.60 mg/L (0-3.0) H 11/01/23 04:40 B-Natriuretic Peptide 521 pg/mL (0-79) H 11/02/23 04:31 Total Protein 6.8 g/dL (6.4-8.2) 11/02/23 04:31 Albumin 1.2 g/dL (3.4-5.0) L 11/02/23 04:31 Globulin 5.6 g/dL (2.5-4.5) H 11/02/23 04:31 Albumin/Globulin Ratio 0.2 Ratio (1.1-2.1) L 11/02/23 04:31 Vitamin B12 719 pg/mL (193-986) 10/27/23 12:15 Folate 7.8 ng/mL (>8.6) L 10/27/23 12:15 Specimen Type Catherized urine 10/31/23 11:18 Urine Color Tran (YELLOW) 10/31/23 11:18 Urine Appearance Hazy (CLEAR) 10/31/23 11:18 Urine pH 5.0 (5.0 - 8.0) 10/31/23 11:18 Ur Specific [place] 1.020 (1.000-1.030) 10/31/23 11:18 Urine Protein 3+ (NEGATIVE) 10/31/23 11:18 Urine Glucose (UA) 4+ (NEGATIVE) 10/31/23 11:18 Urine Ketones Negative (NEGATIVE) 10/31/23 11:18 Urine Blood 5+ (NEGATIVE) 10/31/23 11:18 Urine Nitrite Negative (NEGATIVE) 10/31/23 11:18 Urine Bilirubin 1+ (NEGATIVE) 10/31/23 11:18 Urine Urobilinogen 1+ (NORMAL) 10/31/23 11:18 Ur Leukocyte Esterase 1+ (NEGATIVE) 10/31/23 11:18 Urine RBC Tntc /HPF (0-3) A 10/31/23 11:18 Urine WBC 0-2 /HPF (0-5) 10/31/23 11:18 Ur Squamous Epith Cells Negative /HPF (NEGATIVE) 10/31/23 11:18 Ur Transition Epith Cell Rare /HPF (NEGATIVE) 10/31/23 11:18 Amorphous Sediment 2+ /HPF (NEGATIVE) 10/31/23 11:18 Urine Bacteria 1+ /HPF (NEGATIVE) 10/31/23 11:18 Hyaline Casts Rare /LPF (NEGATIVE) 10/31/23 11:18 Granular Casts Rare /LPF (NEGATIVE) 10/31/23 11:18 Urine Mucus Rare /HPF (NEGATIVE) 10/31/23 11:18 Ur Culture Indicated? No/not indicated 10/31/23 11:18 SARS-CoV-2 (PCR) Negative (NEGATIVE) 10/27/23 12:08 Influenza Type A (PCR) Negative (NEGATIVE) 10/27/23 12:08 Influenza Type B (PCR) Negative (NEGATIVE) 10/27/23 12:08 RSV (PCR) Negative (NEGATIVE) 10/27/23 12:08 Assessment and Plan 1: Dysphagia.. Esophageal dysfunction disorder and gastroparesis. Awaiting swallow evaluation... on IV Protonix.. Problem Patient Problems: Patient Problems Hypothermia (Acute) T68.XXXA Hypotension (Acute) I95.9 Atrial fibrillation with RVR (Acute) I48.91 Hyponatremia (Acute) E87.1 Acute kidney injury (nontraumatic) (Acute) N17.9 Poorly controlled diabetes mellitus (Acute) E11.65
[2023-11-02] MEDS: ELIQUIS PO SCH ×2 (09:31→20:54)
[2023-11-02] MEDS: TRADJENTA PO SCH (09:32)
[2023-11-02] MEDS: FLOMAX PO SCH (09:32)
[2023-11-02] MEDS: FOLIC ACID TAB 1 MG PO SCH (09:32)
[2023-11-02] MEDS: NS IV SCH (10:00)
[2023-11-02] MEDS: INVANZ IV SCH (10:00)
[2023-11-02] MEDS: PROTONIX INJ 40 MG VIAL IVP SCH (10:00)
[2023-11-02] MEDS: PHENOBARBITAL TAB 15 MG (16.2MG) PO SCH (10:15)
--- NOTE | 2023-11-02 10:15 | CT ---
EXAM: BRAIN W/O CON HISTORY: lethargic; HTN, DM COMPARISON: No relevant prior studies were available for comparison at the time of interpretation.. TECHNIQUE: CT images were obtained. Multiplanar reconstructions were created on a separate workstation and used during interpretation. All CT scans at this facility is dose modulation, iterative reconstruction, an d/or weight-based dosing as appropriate to reduce radiation to levels as low as reasonably achievable (ALARA). Postprocessing details, radiation dose, and contrast dose (if applicable) are recorded in t he patient's medical record. FINDINGS: Acute findings: There is no intracranial hemorrhage. No mass effect. No intra-axial or extra-axial fl uid collection. There is no mass. No tentorial, uncal, or tonsillar herniation. Brain volume and white matter: There is diffuse cortical atrophy. There is hypoattenuation in the sup ratentorial white matter consistent with chronic microvascular ischemic disease. Ventricles: No hydrocephalus Midline structures: Pituitary gland and corpus callosum are normal. Posterior fossa and skull base: Cerebellum and posterior fossa are within normal limits. Basal cister ns are not effaced. Sinuses and mastoids: Paranasal sinuses and mastoid air cells are predominantly clear. Globes and Orbits: Bilateral lens implants. Globes are intact. Bony orbits are intact. Extraocular mu scles and retrobulbar fat appear normal. Skull and soft tissues: No depressed skull fracture. Calvarium appears intact. No scalp injury is mika ntified. IMPRESSION: 1. No acute intracranial abnormality THIS IS AN ELECTRONICALLY VERIFIED FINAL REPORT 11/02/2023 10:11 AM - Electronically signed by Philip Betancourt MD
--- NOTE | 2023-11-02 10:21 | RAD ---
EXAM:Portable chestHISTORY:Congestive heart failureCOMPARISON:10/31/2023FINDINGS:Pat ient is rotated to the left. Heart is mildly enlarged. No congestive heart failure is noted. Bibasilar subsegmental atelectasis is present somewhat more prominent on the right than the left. No acute alveolar infiltrates or congestive heart failure identified. No pleural effusions or pneumothoraces identified. Bony thorax is unremarkable.IMPRESSION:Mild cardiomegaly without congestive heart failureBibasilar subsegmental atelectasisTHIS IS AN ELECTRONICALLY VERIFIED FINAL REPORT11/02/2023 10:18 AM - Electronically signed by Thad Mistry MD
--- NOTE | 2023-11-02 13:07 | DR.CONSULT ---
CONSULT Consultation for Day of: Date: 11/02/23 Chief Complaint Chief Complaint: admitted for renal failure/ had afib Allergies Allergies Allergy/AdvReac Type Severity Reaction Status Date / Time No Known Allergies Allergy Verified 11/03/22 08:13 History of Present Illness History of Present Illness: unable to get true history as patient talks but not understandable- nsg states cant swallow- had egd- had run of afib that converted with iv cardizem bolus- bp has been marginal-inr markedly elevated but was on high dose eliquis- repeat inr pending as now cant swallow pills- Past Medical History Past Medical History: Coronary Artery Disease and Diabetes Family History Family Medical History: Diabetes Mellitus, Cancer, ID, Heart Failure and Hypertension Social History Does patient currently use any type of tobacco product: Yes (dip) Have you used tobacco products in the last 12 months: Yes Type of Tobacco Use: dip How many years tobacco product used: 12 Does any household member use tobacco: No Alcohol Use: DAILY Drug Use: None Medications Home Medications: No Known Allergies Allergy (Verified 11/03/22 08:13) CONTINUE taking the following medications atorvastatin 10 mg tablet 10 mg PO QDAY 10/27/23 [History] meloxicam 15 mg tablet 15 mg PO QDAY 10/27/23 [History] semaglutide 7 mg tablet (Rybelsus) 7 mg PO DAILY 10/27/23 [History] tamsulosin 0.4 mg capsule 0.4 mg PO QDAY 10/27/23 [History] Physical Exam Vital Signs: Vital Signs Temperature 98.3 F Pulse Rate 74 Pulse Rate 79 Pulse Rate 73 Pulse Rate 75 Pulse Rate 78 Pulse Rate 72 Pulse Rate 75 Pulse Rate 72 Pulse Rate 76 Pulse Rate 77 Pulse Rate 83 Pulse Rate 79 Pulse Rate 80 Pulse Rate 80 Pulse Rate 80 Pulse Rate 83 Pulse Rate 87 Pulse Rate 84 Pulse Rate 82 Pulse Rate 81 Pulse Rate 83 Pulse Rate 76 Pulse Rate 81 Pulse Rate 80 Pulse Rate 80 Pulse Rate 80 Pulse Rate 79 Pulse Rate 80 Pulse Rate 81 Pulse Rate 80 Respiratory Rate 21 Respiratory Rate 25 Respiratory Rate 23 Respiratory Rate 22 Respiratory Rate 15 Respiratory Rate 20 Respiratory Rate 17 Respiratory Rate 21 Respiratory Rate 19 Respiratory Rate 19 Respiratory Rate 22 Respiratory Rate 10 Respiratory Rate 21 Respiratory Rate 13 Respiratory Rate 25 Respiratory Rate 23 Respiratory Rate 16 Respiratory Rate 26 Respiratory Rate 31 Respiratory Rate 25 Respiratory Rate 26 Respiratory Rate 25 Respiratory Rate 25 Respiratory Rate 23 Respiratory Rate 23 Respiratory Rate 22 Respiratory Rate 22 Respiratory Rate 20 Respiratory Rate 20 Respiratory Rate 21 Blood Pressure 97/52 Blood Pressure 133/59 Blood Pressure 101/53 Blood Pressure 110/54 Blood Pressure 96/51 Blood Pressure 102/51 Blood Pressure 115/57 Blood Pressure 103/53 Blood Pressure 95/55 Blood Pressure 93/50 Blood Pressure 111/57 Blood Pressure 103/54 Blood Pressure 105/55 Blood Pressure 101/52 Blood Pressure 98/53 Blood Pressure 109/51 Blood Pressure 116/58 Blood Pressure 115/57 Blood Pressure 103/53 Blood Pressure 101/53 Blood Pressure 96/55 Blood Pressure 95/50 Blood Pressure 105/57 Blood Pressure 99/52 Blood Pressure 99/52 Blood Pressure 96/50 Blood Pressure 94/50 Blood Pressure 97/50 Blood Pressure 97/50 Blood Pressure 97/50 O2 Sat by Pulse Oximetry 100 O2 Sat by Pulse Oximetry 100 O2 Sat by Pulse Oximetry 100 O2 Sat by Pulse Oximetry 100 O2 Sat by Pulse Oximetry 100 O2 Sat by Pulse Oximetry 100 O2 Sat by Pulse Oximetry 100 O2 Sat by Pulse Oximetry 100 O2 Sat by Pulse Oximetry 100 O2 Sat by Pulse Oximetry 100 O2 Sat by Pulse Oximetry 100 O2 Sat by Pulse Oximetry 100 O2 Sat by Pulse Oximetry 100 O2 Sat by Pulse Oximetry 100 O2 Sat by Pulse Oximetry 100 O2 Sat by Pulse Oximetry 100 O2 Sat by Pulse Oximetry 100 O2 Sat by Pulse Oximetry 100 O2 Sat by Pulse Oximetry 100 O2 Sat by Pulse Oximetry 100 O2 Sat by Pulse Oximetry 100 O2 Sat by Pulse Oximetry 100 O2 Sat by Pulse Oximetry 100 O2 Sat by Pulse Oximetry 100 O2 Sat by Pulse Oximetry 100 O2 Sat by Pulse Oximetry 100 O2 Sat by Pulse Oximetry 100 O2 Sat by Pulse Oximetry 100 O2 Sat by Pulse Oximetry 100 tries to communicate but garbled speech no jvd clear lungs rrr 1 plus edema everywhere bnp 521 albumin incredibly low at labs to note: BC to date negative UC negative, hct 26 sed rate 130 inr 2.74 after high dose eliquis cr 3 down from 3.7, albumin so low at1.2, TB 2.4, ast 106 alk phos 151 ( ? etoh use) pelvic CT: large prostate cxr: tort Ao,normal heart size, ekg : normal but did have afib, tsh pending echo: hyperdynamic LV, no vegetation seen on AoV, MV, tv w/o sign leaks Plan (1) Hypothermia: Status: Acute (2) Hypotension: Status: Acute Qualifiers: Hypotension type: unspecified hypotension type Qualified Code(s): I95.9 - Hypotension, unspecified (3) Acute kidney injury (nontraumatic): Status: Acute (4) Atrial fibrillation with RVR: Status: Acute Plan: repeat inr now off eliquis being done- cant take po/bp marginal- will follow for now- if recurrence of af: iv amio (5) Hyponatremia: Status: Acute (6) Poorly controlled diabetes mellitus: Status: Acute (7) Inability to swallow: Status: Acute
[2023-11-02] MEDS: SNACK - Diabetic Appropriate PO SCH (20:53)
[2023-11-03] MEDS: NS 1,000 ML IV 1,000 ML IV SCH ×3 (01:09→11:14)
[2023-11-03 05:35] LABS: EOSINOPHILS # (AUTO) 0.1 x10^3/uL (0.0-0.2); MEAN PLATELET VOLUME 9.6 fL (7.4-11.0); MONOCYTES # (AUTO) 1.1 x10^3/uL (0.3-0.8)
[2023-11-03 05:41] LABS: BASOPHILS # (AUTO) 0.1 X10^3/uL (0.0-0.1); BASOPHILS % (AUTO) 0.6 % (0.2-1.0); EOSINOPHILS % (AUTO) 0.8 % (0.9-2.9); HEMATOCRIT 26.3 % (42.0-54.0); LYMPHOCYTES # (AUTO) 0.8 X10^3/uL (1.3-2.9); MEAN CORPUSCULAR HEMOGLOBIN 33.6 pg (27.0-34.0); MEAN CORPUSCULAR HGB CONC 34.1 g/dL (33.0-35.0); MEAN CORPUSCULAR VOLUME 98.6 fL (80.0-100.0); MONOCYTES % (AUTO) 11.7 % (0.0-13.0); NEUTROPHILS # (AUTO) 7.5 x10^3/uL (2.2-4.8); NEUTROPHILS % (AUTO) 78.9 % (42.0-75.0); PLATELET COUNT 164 X10^3/uL (150.0-450.0); RED BLOOD COUNT 2.67 X10^6/uL (4.7-6.0); RED CELL DISTRIBUTION WIDTH 13.9 % (11.6-16.5); WHITE BLOOD COUNT 9.5 X10^3/uL (3.6-10.0)
[2023-11-03 05:43] LABS: ALBUMIN 1.2 g/dL (3.4-5.0); CALCIUM 8.5 mg/dL (8.5-10.1); CARBON DIOXIDE 15.6 mmol/L (21-32); COR CA(FOR HYPOALB) 10.7 mg/dL (8.5-10.1); CREATININE 2.99 mg/dL (0.70-1.30); POTASSIUM 4.8 mmol/L (3.5-5.1); TOTAL PROTEIN 7.1 g/dL (6.4-8.2)
[2023-11-03 06:04] LABS: PLATELET MORPHOLOGY COMMENT NORMAL (NORMAL); TARGET CELLS PRESENT
[2023-11-03] MEDS ORDERED: LASIX IVP SCH (09:00)
[2023-11-03] MEDS: PROTONIX INJ 40 MG VIAL IVP SCH (09:25)
[2023-11-03] MEDS: NS IV SCH (09:25)
[2023-11-03] MEDS: INVANZ IV SCH (09:25)
[2023-11-03] MEDS: ELIQUIS PO SCH ×2 (09:27→21:10)
[2023-11-03] MEDS: FOLIC ACID TAB 1 MG PO SCH (09:28)
[2023-11-03] MEDS: FLOMAX PO SCH (09:28)
[2023-11-03] MEDS: TRADJENTA PO SCH (09:28)
[2023-11-03 10:03] LABS: ABG BASE EXCESS -11.5 mmol/L (-2.0-2.0)
[2023-11-03 10:04] LABS: ABG ALLEN TEST POS; ABG HCO3 14.2 mmol/L (22-26)
--- NOTE | 2023-11-03 10:31 | RAD ---
EXAM:CHEST, 1 VIEWHISTORY:SOB;COMPARISON:Chest radiograph 11/02/2023FINDINGS:The lungs are not well inflated. As a result, there are hypoventilatory changes in the bases.Vague areas of opacity are noted in the lower half of the right lung in the lower 2/3 of the medial left lung. This may be pulmonary edema or pneumonia. Findings on the right side have improved slightly.Cardiomegaly is present.Old rib fractures on the left.EKG leads are noted.IMPRESSION:1. Bilateral pneumonia or pulmonary edema, improved on the right2. CardiomegalyTHIS IS AN ELECTRONICALLY VERIFIED FINAL REPORT11/03/2023 10:28 AM - Electronically signed by Renan Moreno MD
[2023-11-03 13:42] LABS: INR 1.74 (0.8-1.3)
--- NOTE | 2023-11-03 15:00 | NOTE.SOAP ---
Soap Note Note for Day of Date of Exam: 11/03/23 Subjective Data Subjective Data: Sleeping- still unable to communicate with nursing as garbled speech, no po food/meds- no more afib Objective Data Objective Data: Sinus 66 bp 120s labs: hct 26 coags and no eliquis inr 2.0-1.74 cr down to 2.99 glu 200s lfts up, nh3<10 ,alb 1.2, cxr: b pna BC negative for 2 days Assessment Assessment: unable to swallow/mental deterioration unexplained, low albumin, elevated inr w/o meds-afib , elevated lfts/cr Plan Plan: will stop eliquis ( he cant swallow anyway with elevated inr), cant give po meds like bb- trying to get transferred to [place]
--- NOTE | 2023-11-03 15:41 | MRI ---
EXAM:BRAIN W/O CONHISTORY:LETHARGIC- best images possible due to patient condition r/o stroke ;COMPARISON:Head CT dated 11/02/2023TECHNIQUE:Nonenhanced MRI images of the brain were acquired using routine pulse sequences and imaging planes. Multiple sequences were repeated due to motion artifactFINDINGS:There is no restricted diffusion to suggest acute infarct. Motion severely degrades the exam but it seems adequate to exclude an acute infarct. Generalized atrophy and small vessel ischemic disease are also present.IMPRESSION:Limited by motion but negative for infarct.THIS IS AN ELECTRONICALLY VERIFIED FINAL REPORT11/03/2023 3:37 PM - Electronically signed by Alberto Mendez MD
[2023-11-03] MEDS ORDERED: NS 1/2 1,000 ML IV 1,000 ML IV ONE (17:58)
[2023-11-03] MEDS: SODIUM BICARBONATE 8.4% INJ ADULT 100 ML in NS 1/2 1,000 ML IV 1,000 ML IV SCH (18:04)
[2023-11-03] MEDS: SNACK - Diabetic Appropriate PO SCH (21:10)
[2023-11-03] MEDS: NovoLIN R (or HumuLIN R) SUBCUT PRN (21:42)
[2023-11-04] MEDS: NovoLIN R (or HumuLIN R) SUBCUT PRN ×3 (02:06→20:29)
[2023-11-04 06:37] LABS: EOSINOPHILS # (AUTO) 0.1 x10^3/uL (0.0-0.2); EOSINOPHILS % (AUTO) 0.8 % (0.9-2.9); HEMOGLOBIN 9.8 g/dL (13.5-18.0); MEAN PLATELET VOLUME 9.5 fL (7.4-11.0)
[2023-11-04 06:45] LABS: BASOPHILS % (AUTO) 0.3 % (0.2-1.0); HEMATOCRIT 29.2 % (42.0-54.0); LYMPHOCYTES # (AUTO) 0.8 X10^3/uL (1.3-2.9); LYMPHOCYTES % (AUTO) 8.6 % (21.0-51.0); MEAN CORPUSCULAR HGB CONC 33.7 g/dL (33.0-35.0); MEAN CORPUSCULAR VOLUME 98.1 fL (80.0-100.0); MONOCYTES % (AUTO) 10.4 % (0.0-13.0); NEUTROPHILS # (AUTO) 7.8 x10^3/uL (2.2-4.8); NEUTROPHILS % (AUTO) 79.9 % (42.0-75.0); PLATELET COUNT 167 X10^3/uL (150.0-450.0); RED BLOOD COUNT 2.98 X10^6/uL (4.7-6.0); RED CELL DISTRIBUTION WIDTH 14.1 % (11.6-16.5); WHITE BLOOD COUNT 9.8 X10^3/uL (3.6-10.0)
[2023-11-04 06:51] LABS: ALBUMIN 1.2 g/dL (3.4-5.0); CALCIUM 8.7 mg/dL (8.5-10.1); COR CA(FOR HYPOALB) 10.9 mg/dL (8.5-10.1); CREATININE 2.82 mg/dL (0.70-1.30); POTASSIUM 4.5 mmol/L (3.5-5.1); TOTAL PROTEIN 7.5 g/dL (6.4-8.2)
--- NOTE | 2023-11-04 08:54 | RAD ---
EXAM: CHEST, 1 VIEW HISTORY: SOB, AMS; COMPARISON: 11/03/2023 CXR TECHNIQUE: AP view of the chest FINDINGS: Cardiac silhouette is stably mildly enlarged. Mediastinal contours appear normal. Similar-appearing bilateral airspace opacities in the left mid to lower lung and right base. No large pleural effusio n. No pneumothorax. Soft tissue attenuation from the chest wall limits evaluation. IMPRESSION: No significant change compared to prior radiograph. Bilateral airspace opacities appear similar and may represent edema or pneumonia in the acute setting. Recommend follow-up imaging to document resol ution after appropriate treatment. THIS IS AN ELECTRONICALLY VERIFIED FINAL REPORT 11/04/2023 8:51 AM - Electronically signed by Faraz Chung MD
[2023-11-04] MEDS: FLOMAX PO SCH (09:11)
[2023-11-04] MEDS: FOLIC ACID TAB 1 MG PO SCH (09:11)
[2023-11-04] MEDS: ELIQUIS PO SCH ×2 (09:11→20:45)
[2023-11-04] MEDS: TRADJENTA PO SCH (09:12)
[2023-11-04] MEDS: ROCEPHIN VIAL 1 GRAM 1 G in NS 100 ML IV 100 ML IV SCH (10:00)
[2023-11-04 10:06] LABS: ABG BASE EXCESS -6.7 mmol/L (-2.0-2.0)
[2023-11-04 10:07] LABS: ABG ALLEN TEST POS; ABG HCO3 16.9 mmol/L (22-26)
[2023-11-04] MEDS: PROTONIX INJ 40 MG VIAL IVP SCH (11:07)
[2023-11-04] MEDS: SODIUM BICARBONATE 8.4% INJ ADULT 100 ML in NS 1/2 1,000 ML IV 1,000 ML IV SCH ×2 (17:25→20:29)
[2023-11-04] MEDS: SNACK - Diabetic Appropriate PO SCH (19:55)
[2023-11-05 05:29] LABS: BASOPHILS % (AUTO) 0.3 % (0.2-1.0); EOSINOPHILS # (AUTO) 0.1 x10^3/uL (0.0-0.2); EOSINOPHILS % (AUTO) 0.6 % (0.9-2.9); HEMATOCRIT 28.3 % (42.0-54.0); HEMOGLOBIN 9.4 g/dL (13.5-18.0); LYMPHOCYTES # (AUTO) 1.1 X10^3/uL (1.3-2.9); LYMPHOCYTES % (AUTO) 8.3 % (21.0-51.0); MEAN CORPUSCULAR HEMOGLOBIN 32.9 pg (27.0-34.0); MEAN CORPUSCULAR HGB CONC 33.3 g/dL (33.0-35.0); MEAN CORPUSCULAR VOLUME 98.9 fL (80.0-100.0); MEAN PLATELET VOLUME 9.6 fL (7.4-11.0); MONOCYTES # (AUTO) 1.1 x10^3/uL (0.3-0.8); MONOCYTES % (AUTO) 8.4 % (0.0-13.0); NEUTROPHILS # (AUTO) 10.5 x10^3/uL (2.2-4.8); NEUTROPHILS % (AUTO) 82.4 % (42.0-75.0); PLATELET COUNT 157 X10^3/uL (150.0-450.0); RED BLOOD COUNT 2.86 X10^6/uL (4.7-6.0); RED CELL DISTRIBUTION WIDTH 14.4 % (11.6-16.5); WHITE BLOOD COUNT 12.7 X10^3/uL (3.6-10.0)
[2023-11-05 05:40] LABS: ALBUMIN 1.2 g/dL (3.4-5.0); CALCIUM 8.9 mg/dL (8.5-10.1); CARBON DIOXIDE 21.3 mmol/L (21-32); COR CA(FOR HYPOALB) 11.1 mg/dL (8.5-10.1); CREATININE 2.58 mg/dL (0.70-1.30); POTASSIUM 4.3 mmol/L (3.5-5.1); TOTAL PROTEIN 7.4 g/dL (6.4-8.2)
[2023-11-05] MEDS: ELIQUIS PO SCH (08:26)
[2023-11-05] MEDS: FLOMAX PO SCH (08:26)
[2023-11-05] MEDS: TRADJENTA PO SCH (08:26)
[2023-11-05] MEDS: FOLIC ACID TAB 1 MG PO SCH (08:26)
[2023-11-05] MEDS: ROCEPHIN VIAL 1 GRAM 1 G in NS 100 ML IV 100 ML IV SCH (08:26)
[2023-11-05] MEDS: PROTONIX INJ 40 MG VIAL IVP SCH (08:26)
[2023-11-05 11:11] VITALS: O2SAT 100
[2023-11-05] MEDS: NovoLIN R (or HumuLIN R) SUBCUT PRN (11:18)
[2023-11-05] MEDS ORDERED: ZYVOX 600MG IV 600 MG/300 ML BAG IV SCH (12:00)
--- NOTE | 2023-11-05 12:19 | RAD ---
EXAM:CHEST, 1 VIEWHISTORY:pneumonia;COMPARISON: 024FINDINGS:The cardiomediastinal silhouette is stable given rotation.Slightly improving aeration of the lungs. No pneumothorax or effusion.No acute osseous abnormality.IMPRESSION:Improving aeration in the lungs.THIS IS AN ELECTRONICALLY VERIFIED FINAL REPORT11/05/2023 12:15 PM - Electronically signed by Thad Mistry MD
[2023-11-05 12:35] LABS: INR 1.36 (0.8-1.3)
[2023-11-05 13:35] VITALS: TEMP 98.2
[2023-11-05] MEDS: SODIUM BICARBONATE 8.4% INJ ADULT 100 ML in NS 1/2 1,000 ML IV 1,000 ML IV SCH (14:05)
[2023-11-05 14:06] VITALS: BP 112/56; PULSE 63; RESP 15
== END 2023-11-05 15:30 | disposition short-term general hospital (02) | DRG 682 ==
LOC: ER 10:30 → ICU 10:30
PROVIDERS: ADMIT Internal Medicine; ATTEND Internal Medicine